=== PATIENT | female | born 1955 | race American Indian/Alaskan Native ===

== ENCOUNTER 2016-08-07 20:47 | Inpatient (IN) | payer MEDICARE ==
[2016-08-07 23:17] LABS: Hematocrit 34.5 % (30.3-42.9); Hemoglobin 11.4 gm/dl (10.1-14.3); Mean Corpuscular HGB Conc 33 % (30-34); Mean Corpuscular Hemoglobin 28 pg (28-32); Mean Corpuscular Volume 86 fl (79-97); Platelet Count 276 K/mm3 (140-440); Red Blood Count 4.01 M/mm3 (3.65-5.03); Red Cell Distribution Width 14.6 % (13.2-15.2); White Blood Count 9.2 K/mm3 (4.5-11.0)
[2016-08-07 23:25] LABS: Anion Gap 19 mmol/L; BUN/Creatinine Ratio 18.88; Blood Urea Nitrogen 17 mg/dL (7-17); Calcium 9.2 mg/dL (8.4-10.2); Carbon Dioxide 22 mmol/L (22-30); Chloride 99.2 mmol/L (98-107); Glucose 204 mg/dL (65-100); Potassium 3.7 mmol/L (3.6-5.0); Sodium 136 mmol/L (137-145)
[2016-08-07] MEDS ORDERED: DILAUDID IV ONE ×2 (23:28→23:39)
[2016-08-07] MEDS ORDERED: ZOFRAN IV ONE (23:28)
[2016-08-07] MEDS ORDERED: DUONEB 0.5 MG-3 MG/3 ML SOLN IH ONE (23:28)
[2016-08-07] MEDS ORDERED: TORADOL IV ONE (23:28)
--- NOTE | 2016-08-08 00:13 | Emergency Department Report ---
ED Neuro Deficit HPI - General Chief Complaint: Chest Pain Stated Complaint: CHEST PAIN, GERSON Time Seen by Provider: 08/07/16 23:04 Source: patient, old records reviewed Mode of arrival: Ambulatory Limitations: No Limitations - History of Present Illness Initial Comments: 60-year-old female with a past medical history diabetes, arthritis, hypertension , sciatica, gastric paresis, back surgery with chronic back pain presents to the hospital with multiple complaints Complaint #1 left breast pain and chest pain. Symptoms have been constant for the last 3 days. She complains of constant 10/10 chest pain and breast pain that is worse with palpation and movement in certain positions. Patient feels better when her left breast is supported by bra or hand and worse when it is hanging secondary to gravity. Patient also has intermittent episodes of shortness of breath but states she does have a diagnosis of COPD as well. No alleviating factors reported. Upon med record review Pt had a negative stress 2015. She also had a cardiac cath 11/14/14 showing normal coronary arteries an EF of 60-65% Complaint #2: Left sided paralysis/transient weakness Patient was across the street at [facility] prior to coming here for her initial chest pain complaint and states while she was walking out of the store her left side completely gave out on her. She states that she fell landing on her butt causing increase in her chronic lower back pain. She states that she had a paresthesia sensation to her left arm and leg. She could not move her left side at all and was subsequently helped to a car and brought to the ER by bystanders. Patient states the symptoms have gradually in improved. This is her third episode of left sided transient paralysis in the last 4 months. Patient states she had an episode 3 months ago and was admitted to [facility] then upon discharge she had a second episode and did not go to the hospital again since she was recently discharged. Complaint #3: Chronic back pain Patient states she has chronic back pain but it is worse since she fell at [facility] prior to arrival. Patient also states the last 2 weeks she has had intermittent urinary and fecal incontinence as well as intermittent vaginal numbness. Patient has chronic left-sided weakness but is unsure if she has chronic numbness to that side. Pain is rated 10/10 in intensity and worse with palpation and movement.. Patient has had previous back surgeries. Patient was informed she needed another back surgery but declined since she was no better with the previous ones PMD: Dr. Dugan - Related Data Home Medications: Home Medications Medication Instructions Recorded Confirmed Last Taken Insulin Aspart [NovoLOG 100 See Protocol SQ AC 12/23/12 11/13/14 07/28/13 UNITS/ML VIAL] Insulin Glargine,Hum.rec.anlog 30 unit SQ QHS 12/23/12 11/13/14 07/27/13 [Lantus Solostar] Previous Rx's Medication Instructions Recorded Last Taken Type Hydrocodone Bit/Acetaminophen 1 each PO TID PRN #15 tablet 12/24/12 Unknown Rx [Lortab 5-500 Tablet] Ondansetron [Zofran ORAL LIQ] 4 mg PO TID PRN #15 oralsyr 12/24/12 07/28/13 Rx Atenolol [Tenormin] 50 mg PO DAILY #30 tablet 01/04/13 07/28/13 Rx Magaldrate/Simethicone [Riopan 30 ml PO Q8H PRN 30 Days 01/04/13 07/28/13 Rx Plus Suspension] Promethazine [Phenergan SUPPOS] 25 mg MN Q6H PRN #60 supp.rect 01/04/13 Rx Potassium Chloride [K-Dur] 40 meq PO QDAY #2 tablet 04/13/13 07/28/13 Rx Allergies/Adverse Reactions: Allergies Allergy/AdvReac Type Severity Reaction Status Date / Time No Known Allergies Allergy Verified 11/13/14 11:37 ED Review of Systems ROS: Stated complaint: CHEST PAIN, GERSON Other details as noted in HPI Comment: All other systems reviewed and negative Other: Constitutional: No fevers chills Eyes: No eye pain visual changes ENT: No ear pain or throat pain Neck: Denies pain Respiratory: as per hpi Cardiovascular: as per hpi GI: Denies abdominal pain, nausea, vomiting, diarrhea : Denies dysuria Musculoskeletal: as per hpi Skin: Denies rash, lesions, erythema Neurologic: denies headache ED Past Medical Hx - Past Medical History Hx Hypertension: Yes Hx Heart Attack/AMI: No Hx Congestive Heart Failure: No Hx Diabetes: Yes Hx Deep Vein Thrombosis: No Hx Pulmonary Embolism: No Hx Liver Disease: No Hx Renal Disease: No Hx Sickle Cell Disease: No Hx Arthritis: Yes Hx Seizures: No Hx Asthma: Yes Hx COPD: No Hx Tuberculosis: No Hx Dementia: No Hx HIV: No Additional medical history: Sciatica, gastroparesis. negative stress 07/2015. cardiac cath 11/14/14 showing normal coronary arteries an EF of 60-65% - Surgical History Hx Coronary Stent: No Hx Pacemaker: No Hx Internal Defibrillator: No Additional Surgical History: back surgery. bowel obstruction surgery. - Social History Smoking Status: Never Smoker Substance Use Type: None - Medications Home Medications: Home Medications Medication Instructions Recorded Confirmed Last Taken Type Insulin Aspart [NovoLOG 100 See Protocol SQ AC 12/23/12 11/13/14 07/28/13 History UNITS/ML VIAL] Insulin Glargine,Hum.rec.anlog 30 unit SQ QHS 12/23/12 11/13/14 07/27/13 History [Lantus Solostar] Hydrocodone Bit/Acetaminophen 1 each PO TID PRN #15 tablet 12/24/12 11/13/14 Unknown Rx [Lortab 5-500 Tablet] Ondansetron [Zofran ORAL LIQ] 4 mg PO TID PRN #15 oralsyr 12/24/12 11/13/1409/05 Rx Atenolol [Tenormin] 50 mg PO DAILY #30 tablet 01/04/13 11/13/14 07/28/13 Rx Magaldrate/Simethicone [Riopan 30 ml PO Q8H PRN 30 Days 01/04/13 11/13/14 Rx Plus Suspension] Promethazine [Phenergan SUPPOS] 25 mg MN Q6H PRN #60 supp.rect 01/04/1307/28/13 Rx Potassium Chloride [K-Dur] 40 meq PO QDAY #2 tablet 04/13/13 11/13/14 07/28/13 Rx ED Neuro Physical Exam - General Limitations: No Limitations Suspected Stroke: Yes - NIHSS Assessment Interval: Baseline 1a. Level of Consciousness: alert 1b. LOC Questions: answers correctly 1c. LOC Commands: performs tasks correctly 2. Best Gaze: normal 3. Visual: no visual loss 4. Facial Palsy: normal symmetrical movement 5b. Motor Arm Right: no drift 5a. Motor Arm Left: drift 6a. Motor Leg Left: some gravity effort 6b. Motor Leg Right: no drift 7. Limb Ataxia: absent 8. Sensory: mild/moderate sensory loss 9. Best Language: no aphasia 10. Dysarthria: normal 11. Extinction/Inattention: no abnormality Total Score: 4 Stroke Severity: Minor Stroke - Other Other exam information: General: No limitations, patient is alert in no acute distress Head exam: Atraumatic, normocephalic Eyes exam: Normal appearance, pupils equal reactive to light, extraocular movements intact ENT: Moist mucous membrane, normal oropharynx Neck exam: Normal inspection, full range of motion, nontender, no meningismus Respiratory exam: Clear to auscultation bilateral, no wheezes, rales, crackles, initially however, during examination and movement patient developed tachypnea with expiratory wheeze and prolonged expiratory phase Cardiovascular: Normal rate and rhythm Breast: Diffuse left-sided breast tenderness without erythema, warmth, abscess, or nipple discharge Abdomen: Soft, nondistended, and nontender, with normal bowel sounds, no rebound, or guarding Extremity: Full range of motion normal inspection no deformity, no calf tenderness or edema Back: Normal Inspection, full range of motion, generalized midline and bilateral spinal muscle tenderness Neurologic: Alert, oriented x3, cranial nerves intact, patient able to lift his left leg off the bed but unable to sustain. 4+/5 left upper extremity strength. Decreased sensation to light touch of the left leg and left arm. She is patient is unsure if this is new or old. 2+ bilateral patellar reflexes Psychiatric: normal affect, normal mood Skin: Warm, dry, intact ED Course Vital Signs 08/07/16 08/07/16 08/08/16 21:44 22:44 02:00 Temperature 98.9 F 98 F 98 F Pulse Rate 103 H 80 103 H Respiratory 20 18 18 Rate Blood Pressure 146/87 Blood Pressure 146/87 139/83 153/79 [Left] O2 Sat by Pulse 100 99 96 Oximetry - Reevaluation(s) Reevaluation #1: 08/08/16 00:23 Patient received a DuoNeb for wheezing and shortness of breath, Dilaudid, Toradol and Zofran 08/08/16 00:23 - Lab Data Result diagrams: 08/07/16 22:50 08/07/16 22:50 Lab Results 08/07/16 08/07/16 08/07/16 Range/Units 21:51 22:50 22:50 WBC 9.2 (4.5-11.0) K/mm3 RBC 4.01 (3.65-5.03) M/mm3 Hgb 11.4 (10.1-14.3) gm/dl Hct 34.5 (30.3-42.9) % MCV 86 (79-97) fl MCH 28 (28-32) pg MCHC 33 (30-34) % RDW 14.6 (13.2-15.2) % Plt Count 276 (140-440) K/mm3 Lymph # Child And Adolescent Psychologist Add Manual Diff Complete Total Counted 100 Seg Neutrophils % Child And Adolescent Psychologist Seg Neuts % (Manual) 33.0 L (40.0-70.0) % Band Neutrophils % 0 % Lymphocytes % (Manual) 61.0 H (13.4-35.0) % Reactive Lymphs % (Man) 0 % Monocytes % (Manual) 5.0 (0.0-7.3) % Eosinophils % (Manual) 1.0 (0.0-4.3) % Basophils % (Manual) 0 (0.0-1.8) % Metamyelocytes % 0 % Myelocytes % 0 % Promyelocytes % 0 % Blast Cells % 0 % Nucleated RBC % Not Reportable Seg Neutrophils # Man 3.0 (1.8-7.7) K/mm3 Band Neutrophils # 0.0 K/mm3 Lymphocytes # (Manual) 5.6 H (1.2-5.4) K/mm3 Abs React Lymphs (Man) 0.0 K/mm3 Monocytes # (Manual) 0.5 (0.0-0.8) K/mm3 Eosinophils # (Manual) 0.1 (0.0-0.4) K/mm3 Basophils # (Manual) 0.0 (0.0-0.1) K/mm3 Metamyelocytes # 0.0 K/mm3 Myelocytes # 0.0 K/mm3 Promyelocytes # 0.0 K/mm3 Blast Cells # 0.0 K/mm3 WBC Morphology Not Reportable Hypersegmented Neuts Not Reportable Hyposegmented Neuts Not Reportable Hypogranular Neuts Not Reportable Smudge Cells Not Reportable Toxic Granulation Not Reportable Toxic Vacuolation Not Reportable Dohle Bodies Not Reportable Pelger-Huet Anomaly Not Reportable Marisol Rods Not Reportable Platelet Estimate Appears normal Clumped Platelets Not Reportable Plt Clumps, EDTA Not Reportable Large Platelets Not Reportable Giant Platelets Not Reportable Platelet Satelliting Not Reportable Plt Morphology Comment Not Reportable RBC Morphology Not Reportable Dimorphic RBCs Not Reportable Polychromasia Not Reportable Hypochromasia Not Reportable Poikilocytosis Not Reportable Anisocytosis Few Microcytosis Not Reportable Macrocytosis Not Reportable Spherocytes Not Reportable Pappenheimer Bodies Not Reportable Sickle Cells Not Reportable Target Cells Not Reportable Tear Drop Cells Not Reportable Ovalocytes Not Reportable Stomatocytes Rare Helmet Cells Not Reportable Jane-Jamul Bodies Not Reportable [place] Rings Not Reportable [place] Cells Not Reportable Bite Cells Not Reportable Crenated Cell Not Reportable Elliptocytes Not Reportable Acanthocytes (Spur) Not Reportable Rouleaux Not Reportable Hemoglobin C Crystals Not Reportable Schistocytes Not Reportable Malaria parasites Not Reportable Isaias Bodies Not Reportable Hem Pathologist Commnt No Sodium 136 L (137-145) mmol/L Potassium 3.7 (3.6-5.0) mmol/L Chloride 99.2 (98-107) mmol/L Carbon Dioxide 22 (22-30) mmol/L Anion Gap 19 mmol/L BUN 17 (7-17) mg/dL Creatinine 0.9 (0.7-1.2) mg/dL Estimated GFR > 60 ml/min BUN/Creatinine Ratio 18.88 % Glucose 204 H (65-100) mg/dL POC Glucose 216 H (70-105) Calcium 9.2 (8.4-10.2) mg/dL Troponin T < 0.010 (0.00-0.029) ng/mL 08/08/16 Range/Units 01:06 WBC (4.5-11.0) K/mm3 RBC (3.65-5.03) M/mm3 Hgb (10.1-14.3) gm/dl Hct (30.3-42.9) % MCV (79-97) fl MCH (28-32) pg MCHC (30-34) % RDW (13.2-15.2) % Plt Count (140-440) K/mm3 Lymph # Add Manual Diff Total Counted Seg Neutrophils % Seg Neuts % (Manual) (40.0-70.0) % Band Neutrophils % % Lymphocytes % (Manual) (13.4-35.0) % Reactive Lymphs % (Man) % Monocytes % (Manual) (0.0-7.3) % Eosinophils % (Manual) (0.0-4.3) % Basophils % (Manual) (0.0-1.8) % Metamyelocytes % % Myelocytes % % Promyelocytes % % Blast Cells % % Nucleated RBC % Seg Neutrophils # Man (1.8-7.7) K/mm3 Band Neutrophils # K/mm3 Lymphocytes # (Manual) (1.2-5.4) K/mm3 Abs React Lymphs (Man) K/mm3 Monocytes # (Manual) (0.0-0.8) K/mm3 Eosinophils # (Manual) (0.0-0.4) K/mm3 Basophils # (Manual) (0.0-0.1) K/mm3 Metamyelocytes # K/mm3 Myelocytes # K/mm3 Promyelocytes # K/mm3 Blast Cells # K/mm3 WBC Morphology Hypersegmented Neuts Hyposegmented Neuts Hypogranular Neuts Smudge Cells Toxic Granulation Toxic Vacuolation Dohle Bodies Pelger-Huet Anomaly Marisol Rods Platelet Estimate Clumped Platelets Plt Clumps, EDTA Large Platelets Giant Platelets Platelet Satelliting Plt Morphology Comment RBC Morphology Dimorphic RBCs Polychromasia Hypochromasia Poikilocytosis Anisocytosis Microcytosis Macrocytosis Spherocytes Pappenheimer Bodies Sickle Cells Target Cells Tear Drop Cells Ovalocytes Stomatocytes Helmet Cells Jane-Jamul Bodies [place] Rings [place] Cells Bite Cells Crenated Cell Elliptocytes Acanthocytes (Spur) Rouleaux Hemoglobin C Crystals Schistocytes Malaria parasites Isaias Bodies Hem Pathologist Commnt Sodium (137-145) mmol/L Potassium (3.6-5.0) mmol/L Chloride (98-107) mmol/L Carbon Dioxide (22-30) mmol/L Anion Gap mmol/L BUN (7-17) mg/dL Creatinine (0.7-1.2) mg/dL Estimated GFR ml/min BUN/Creatinine Ratio % Glucose (65-100) mg/dL POC Glucose (70-105) Calcium (8.4-10.2) mg/dL Troponin T < 0.010 (0.00-0.029) ng/mL - EKG Data -: EKG Interpreted by Me (sinus rate 90 left atrial enlargement and nonspecific ST-T abnormality) When compared to previous EKG there are: no significant change (compared to 12/2015) - Radiology Data Radiology results: report reviewed (ct head: naf), image reviewed (cxr: naf Lumbar xray: previous surgery noted, naf) - Medical Decision Making Other differential: COPD Plan to admit to the hospital for further workup and evaluation. She has neurologic symptoms. Differential includes CVA/TIA or spinal cord pathology. Patient on chest pain appears to be breast related and reproducible. Patient has residual left-sided weakness which appears to be acute on chronic. - Differential Diagnosis cauda equina, herniated disc, chronic pain, muscle spasm, fracture, CVA, TI Critical Care Time: No Critical care attestation.: If time is entered above; I have spent that time in minutes in the direct care of this critically ill patient, excluding procedure time. ED Disposition Clinical Impression: Transient paralysis of a limb, Left-sided weakness, Acute exacerbation of chronic low back pain, Left sided numbness, Breast pain, left, COPD exacerbation Disposition: OP ADMITTED IP TO THIS HOSP Is pt being admited?: Yes Condition: Stable Referrals: PRIMARY CARE, [Primary Care Provider] - 3-5 Days Time of Disposition: 01:37 (Dr Anderson/hosp)
--- NOTE | 2016-08-08 01:28 | Cat Scan Report ---
FINAL REPORT EXAM: CT HEAD/BRAIN WO CON HISTORY: left side weakness TECHNIQUE: Noncontrast CT axial images of the brain. PRIORS: 02 August 2015. FINDINGS: No parenchymal mass, mass effect, hemorrhage, midline shift or hydrocephalus. No evidence of acute cortical infarct. No abnormal, extra-axial fluid or air collection. Very mild, patchy low density in the periventricular and subcortical white matter is nonspecific, but may relate to chronic small vessel ischemic change. Osseous calvarium grossly intact. Marginal mucosal thickening in the right sphenoid sinus. IMPRESSION: 1. No acute intracranial findings.
[2016-08-08 02:08] LABS: Anisocytosis Few; Basophils % (Manual) 0 % (0.0-1.8); Blastocytes % (Manual) 0 %
[2016-08-08 02:09] LABS: Diff Status Complete; Stomatocytes Rare
[2016-08-08] MEDS ORDERED: ALUM-MAG HYDROX-SIMETH 200-200-20MG/5ML PO ONE (02:48)
[2016-08-08] MEDS ORDERED: LIDOCAINE VISCOUS 2% PO ONE (02:48)
[2016-08-08] MEDS ORDERED: MILK OF MAGNESIA PO PRN (04:20)
[2016-08-08] MEDS ORDERED: PROVENTIL IH PRN (04:20)
[2016-08-08] MEDS ORDERED: DULCOLAX PR PRN (04:20)
[2016-08-08] MEDS ORDERED: REGLAN PO PRN (04:20)
[2016-08-08] MEDS ORDERED: SODIUM CHLORIDE FLUSH SYRINGE 10 ML IV PRN (04:20)
--- NOTE | 2016-08-08 04:24 | History and Physical Report ---
History of Present Illness Date of examination: 08/08/16 History of present illness: 60-year-old woman with a history of hypertension, diabetes, chronic pain comes emergency room with complaints of left sided numbness. Also complaining of chest pain in the epigastric and left substernal area which she describes as a sharp pain, constant, intensity 7/10, radiating to the left upper back, she cannot identify exacerbating or relieving factors. She has had nausea vomiting and diarrhea for 3 days, symptoms are better, also complaining of mild shortness of breath, no diaphoresis or palpitation Patient denies cough, abdominal pain, hematochezia, dysuria, frequency, focal weakness, dysarthria, fever chills, polydipsia polyuria, hot or cold intolerance , easy bruisability, or rash or bleeding from mucosal membrane, rhinorrhea, epistaxis, earache, tinnitus, blurry vision, eye discharge, anxiety, depression. Other review of systems negative PAST SURGICAL HISTORY: Back surgery, surgery for bowel obstruction SOCIAL HISTORY: Denies alcohol, tobacco, drugs FAMILY HISTORY: Hypertension Medications and Allergies Allergies Allergy/AdvReac Type Severity Reaction Status Date / Time No Known Allergies Allergy Verified 11/13/14 11:37 Home Medications Medication Instructions Recorded Confirmed Last Taken Type Insulin Aspart [NovoLOG 100 See Protocol SQ AC 12/23/12 11/13/14 07/28/13 History UNITS/ML VIAL] Insulin Glargine,Hum.rec.anlog 30 unit SQ QHS 12/23/12 11/13/14 07/27/13 History [Lantus Solostar] Hydrocodone Bit/Acetaminophen 1 each PO TID PRN #15 tablet 12/24/12 11/13/14 Unknown Rx [Lortab 5-500 Tablet] Ondansetron [Zofran ORAL LIQ] 4 mg PO TID PRN #15 oralsyr 12/24/12 11/13/1409/05 Rx Atenolol [Tenormin] 50 mg PO DAILY #30 tablet 01/04/13 11/13/14 07/28/13 Rx Magaldrate/Simethicone [Riopan 30 ml PO Q8H PRN 30 Days 01/04/13 11/13/14 Rx Plus Suspension] Promethazine [Phenergan SUPPOS] 25 mg [place] Q6H PRN #60 supp.rect 01/04/1307/28/13 Rx Potassium Chloride [K-Dur] 40 meq PO QDAY #2 tablet 04/13/13 11/13/14 07/28/13 Rx Exam - Physical Exam Narrative exam: Gen. appearance: Patient lying in bed, no apparent distress HEENT: Normocephalic, atraumatic, pupils equally round and reactive to light, extraocular movement intact, and no sclericterus,. No JVD or thyromegaly or nodule,neck supple, no carotid bruit ,mucous membranes moist, no exudate or erythema Heart: S1, S2, regular rate and rhythm Lungs: Clear to auscultation bilaterally, breathing comfortable Abdomen: Positive bowel sounds, nontender, nondistended, no organomegaly Extremity: No edema, cyanosis, clubbing Skin: No rash, nodules, warm, dry Neuro: Oriented 3, cranial nerves II-12 intact, speech is fluent, motor, left- sided numbness - Constitutional Vitals: Temp Pulse Resp BP Pulse Ox 98 F 103 H 18 153/79 96 08/08/16 02:00 08/08/16 02:00 08/08/16 02:00 08/08/16 02:00 08/08/16 02:00 Results - Labs CBC & Chem 7: 08/07/16 22:50 08/07/16 22:50 Labs: Abnormal lab results 08/07/16 08/07/16 08/07/16 Range/Units 21:51 22:50 22:50 Seg Neuts % (Manual) 33.0 L (40.0-70.0) % Lymphocytes % (Manual) 61.0 H (13.4-35.0) % Lymphocytes # (Manual) 5.6 H (1.2-5.4) K/mm3 Sodium 136 L (137-145) mmol/L Glucose 204 H (65-100) mg/dL POC Glucose 216 H (70-105) - Imaging and Cardiology EKG: image reviewed Chest x-ray: image reviewed CT Scan - head: report reviewed Assessment and Plan CVA versus TIA Chest pain, rule out ACS Hypertension Diabetes Admit to medicine Obtain MRI of the head, carotid Doppler, echo Do neurochecks, start aspirin, statin Consult neurology, obtain stress test Start DVT prophylaxis
[2016-08-08] MEDS: TYLENOL PO PRN ×2 (06:12→13:09)
[2016-08-08] MEDS: ZOFRAN IV PRN (06:19)
[2016-08-08 07:58] LABS: Creatine Kinase MB 2.6 ng/mL (0.0-4.0)
[2016-08-08 08:01] LABS: Creatine Kinase 275 units/L (30-135)
[2016-08-08] MEDS ORDERED: LEXISCAN IV ONE ×2 (08:12→08:13)
[2016-08-08] MEDS ORDERED: LOVENOX SUB-Q SCH ×2 (10:00)
[2016-08-08] MEDS ORDERED: ASPIRIN PO SCH (10:00)
--- NOTE | 2016-08-08 10:15 | Progress Note ---
Assessment and Plan Assessment and plan: Patient is 60-year-old woman with a plethora of comorbidities who presents with multiple somatic complaints. Significant for chest pain and left-sided weakness. Patient is being worked up for ischemia and CVA. MRI brain, echocardiogram, stress test and carotid Doppler has been ordered. PCP Dr. Rdz which I consulted. Cardiac enzymes troponins have been negative, CT head unremarkable. Chest x-ray pending. -Chest pain so far negative cardiac enzymes unrevealing EKG: pending stress tests -Left-sided weakness rule out CVA -Left shoulder pain after fall: X-ray the shoulder -Diabetes mellitus type 2 uncontrolled: As sliding-scale -DVT prophylaxis: Subcutaneous Lovenox Full code History Interval history: Patient admitted today, hospital reassessment Patient seen and examined. Follow up on left-sided weakness which is still present. Overnight uneventful. No cp, sob, n/v or severe headaches. Imaging, old records, testing, labs, nursing notes reviewed. Plan discussed with patient. 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 but she also has weakness in proximal muscle and shoulder area PSY: CALM - Constitutional Vitals: Temp Pulse Resp BP Pulse Ox 98.4 F 73 20 122/83 92 08/08/16 06:23 08/08/16 06:23 08/08/16 06:23 08/08/16 06:23 08/08/16 06:23 Results - Labs CBC & Chem 7: 08/07/16 22:50 08/07/16 22:50 Labs: Laboratory Last Values WBC 9.2 K/mm3 (4.5-11.0) 08/07/16 22:50 RBC 4.01 M/mm3 (3.65-5.03) 08/07/16 22:50 Hgb 11.4 gm/dl (10.1-14.3) 08/07/16 22:50 Hct 34.5 % (30.3-42.9) 08/07/16 22:50 MCV 86 fl (79-97) 08/07/16 22:50 MCH 28 pg (28-32) 08/07/16 22:50 MCHC 33 % (30-34) 08/07/16 22:50 RDW 14.6 % (13.2-15.2) 08/07/16 22:50 Plt Count 276 K/mm3 (140-440) 08/07/16 22:50 Lymph # Sports Director 08/07/16 22:50 Add Manual Diff Complete 08/07/16 22:50 Total Counted 100 08/07/16 22:50 Seg Neutrophils % Sports Director 08/07/16 22:50 Seg Neuts % (Manual) 33.0 % (40.0-70.0) L 08/07/16 22:50 Band Neutrophils % 0 % 08/07/16 22:50 Lymphocytes % (Manual) 61.0 % (13.4-35.0) H 08/07/16 22:50 Reactive Lymphs % (Man) 0 % 08/07/16 22:50 Monocytes % (Manual) 5.0 % (0.0-7.3) 08/07/16 22:50 Eosinophils % (Manual) 1.0 % (0.0-4.3) 08/07/16 22:50 Basophils % (Manual) 0 % (0.0-1.8) 08/07/16 22:50 Metamyelocytes % 0 % 08/07/16 22:50 Myelocytes % 0 % 08/07/16 22:50 Promyelocytes % 0 % 08/07/16 22:50 Blast Cells % 0 % 08/07/16 22:50 Nucleated RBC % Not Reportable 08/07/16 22:50 Seg Neutrophils # Man 3.0 K/mm3 (1.8-7.7) 08/07/16 22:50 Band Neutrophils # 0.0 K/mm3 08/07/16 22:50 Lymphocytes # (Manual) 5.6 K/mm3 (1.2-5.4) H 08/07/16 22:50 Abs React Lymphs (Man) 0.0 K/mm3 08/07/16 22:50 Monocytes # (Manual) 0.5 K/mm3 (0.0-0.8) 08/07/16 22:50 Eosinophils # (Manual) 0.1 K/mm3 (0.0-0.4) 08/07/16 22:50 Basophils # (Manual) 0.0 K/mm3 (0.0-0.1) 08/07/16 22:50 Metamyelocytes # 0.0 K/mm3 08/07/16 22:50 Myelocytes # 0.0 K/mm3 08/07/16 22:50 Promyelocytes # 0.0 K/mm3 08/07/16 22:50 Blast Cells # 0.0 K/mm3 08/07/16 22:50 WBC Morphology Not Reportable 08/07/16 22:50 Hypersegmented Neuts Not Reportable 08/07/16 22:50 Hyposegmented Neuts Not Reportable 08/07/16 22:50 Hypogranular Neuts Not Reportable 08/07/16 22:50 Smudge Cells Not Reportable 08/07/16 22:50 Toxic Granulation Not Reportable 08/07/16 22:50 Toxic Vacuolation Not Reportable 08/07/16 22:50 Dohle Bodies Not Reportable 08/07/16 22:50 Pelger-Huet Anomaly Not Reportable 08/07/16 22:50 Marisol Rods Not Reportable 08/07/16 22:50 Platelet Estimate Appears normal 08/07/16 22:50 Clumped Platelets Not Reportable 08/07/16 22:50 Plt Clumps, EDTA Not Reportable 08/07/16 22:50 Large Platelets Not Reportable 08/07/16 22:50 Giant Platelets Not Reportable 08/07/16 22:50 Platelet Satelliting Not Reportable 08/07/16 22:50 Plt Morphology Comment Not Reportable 08/07/16 22:50 RBC Morphology Not Reportable 08/07/16 22:50 Dimorphic RBCs Not Reportable 08/07/16 22:50 Polychromasia Not Reportable 08/07/16 22:50 Hypochromasia Not Reportable 08/07/16 22:50 Poikilocytosis Not Reportable 08/07/16 22:50 Anisocytosis Few 08/07/16 22:50 Microcytosis Not Reportable 08/07/16 22:50 Macrocytosis Not Reportable 08/07/16 22:50 Spherocytes Not Reportable 08/07/16 22:50 Pappenheimer Bodies Not Reportable 08/07/16 22:50 Sickle Cells Not Reportable 08/07/16 22:50 Target Cells Not Reportable 08/07/16 22:50 Tear Drop Cells Not Reportable 08/07/16 22:50 Ovalocytes Not Reportable 08/07/16 22:50 Stomatocytes Rare 08/07/16 22:50 Helmet Cells Not Reportable 08/07/16 22:50 [place] Bodies Not Reportable 08/07/16 22:50 [place] Rings Not Reportable 08/07/16 22:50 Renick Cells Not Reportable 08/07/16 22:50 Bite Cells Not Reportable 08/07/16 22:50 Crenated Cell Not Reportable 08/07/16 22:50 Elliptocytes Not Reportable 08/07/16 22:50 Acanthocytes (Spur) Not Reportable 08/07/16 22:50 Rouleaux Not Reportable 08/07/16 22:50 Hemoglobin C Crystals Not Reportable 08/07/16 22:50 Schistocytes Not Reportable 08/07/16 22:50 Malaria parasites Not Reportable 08/07/16 22:50 Isaias Bodies Not Reportable 08/07/16 22:50 Hem Pathologist Commnt No 08/07/16 22:50 Sodium 136 mmol/L (137-145) L 08/07/16 22:50 Potassium 3.7 mmol/L (3.6-5.0) 08/07/16 22:50 Chloride 99.2 mmol/L (98-107) 08/07/16 22:50 Carbon Dioxide 22 mmol/L (22-30) 08/07/16 22:50 Anion Gap 19 mmol/L 08/07/16 22:50 BUN 17 mg/dL (7-17) 08/07/16 22:50 Creatinine 0.9 mg/dL (0.7-1.2) 08/07/16 22:50 Estimated GFR > 60 ml/min 08/07/16 22:50 BUN/Creatinine Ratio 18.88 % 08/07/16 22:50 Glucose 204 mg/dL (65-100) H 08/07/16 22:50 POC Glucose 216 (70-105) H 08/07/16 21:51 Calcium 9.2 mg/dL (8.4-10.2) 08/07/16 22:50 Total Creatine Kinase 275 units/L (30-135) H 08/08/16 06:39 CK-MB (CK-2) 2.6 ng/mL (0.0-4.0) 08/08/16 06:39 CK-MB (CK-2) Rel Index 0.9 (0-4) 08/08/16 06:39 Troponin T < 0.010 ng/mL (0.00-0.029) 08/08/16 06:39 - Imaging and Cardiology CT Scan - head: report reviewed
--- NOTE | 2016-08-08 11:33 | XRay Report ---
AP CHEST : 08/08/16 CLINICAL: Chest pain. COMPARISON:08/02/15 FINDINGS: Normal heart and pulmonary vessels. The lungs are normally expanded and clear. Degenerative changes in the spine. IMPRESSION: No acute cardiopulmonary process.
--- NOTE | 2016-08-08 11:38 | XRay Report ---
LUMBAR SPINE THREE VIEWS: 08/07/16 20:47:00 CLINICAL: Fall and back pain. COMPARISON: 12/22/12 FINDINGS: Status post posterior lumbar fusion from L4-S1. Stable straightening of the spine with loss of the normal lordosis. The L3 vertebral body is decreased in height compared to the prior exam but there are no fracture lines. Stable sclerosis of the L2, L3 and upper L4 vertebral bodies. Vacuum disc phenomenon at L2-3 and L3-4. Greater anterior spondylosis from L2-L4. The pedicles are intact. No fracture. Normal soft tissues. IMPRESSION: No apparent traumatic injury. Status post lumbar fusion. Chronic degenerative disc disease at L2-3 and L3-4.
--- NOTE | 2016-08-08 13:19 | Event Note ---
Date: 08/08/16 Lexiscan MPI is normal inform PCP
--- NOTE | 2016-08-08 14:00 | XRay Report ---
LEFT SHOULDER THREE VIEWS: 08/08/16 04:20:00 CLINICAL: Fall and pain. FINDINGS: Mild osteopenia. No fracture or dislocation. Mild glenohumeral joint arthritis with a small inferior humeral osteophyte. Mild degenerative change at the greater tuberosity. Normal acromioclavicular joint. Normal soft tissues. IMPRESSION: Degenerative change and no apparent injury.
[2016-08-08 15:15] LABS: Creatine Kinase MB 2.7 ng/mL (0.0-4.0)
[2016-08-08 15:17] LABS: Creatine Kinase 235 units/L (30-135)
[2016-08-08] MEDS ORDERED: ATIVAN IV ONE (17:08)
[2016-08-08] MEDS: NORCO 10/325 PO PRN (21:15)
[2016-08-08] MEDS ORDERED: ZOCOR PO SCH (22:00)
--- NOTE | 2016-08-08 22:06 | Consultation ---
History of Present Illness - Reason for Consult Consult date: 08/08/16 lymphocytosis/left breast pain. - History of Present Illness Thank you for this support. Patient seen/examined, record reviewed, case d/w the patient. She had presented to the Ed, after a syncope episode. carotid study so far shows less than 50% occlusion.She is complaining of left breast pain, Her last mammogram was one yr ago. She may benefit from us/mammogram. Past History Past Medical History: diabetes, hypertension Social history: no significant social history Medications and Allergies Allergies Allergy/AdvReac Type Severity Reaction Status Date / Time No Known Allergies Allergy Verified 11/13/14 11:37 Home Medications Medication Instructions Recorded Confirmed Last Taken Type Insulin Aspart [NovoLOG 100 See Protocol SQ AC 12/23/12 08/08/16 08/07/16 History UNITS/ML VIAL] Insulin Glargine,Hum.rec.anlog 30 unit SQ QHS 12/23/12 08/08/16 08/07/16 History [Lantus Solostar] Ondansetron [Zofran ORAL LIQ] 4 mg PO TID PRN #15 oralsyr 12/24/12 08/08/16 Rx Atenolol [Tenormin] 50 mg PO DAILY #30 tablet 01/04/13 08/08/16 08/07/16 Rx Promethazine [Phenergan SUPPOS] 25 mg IA Q6H PRN #60 supp.rect 01/04/1307/28/13 Rx Potassium Chloride [K-Dur] 40 meq PO QDAY #2 tablet 04/13/13 08/08/16 08/06/16 Rx Hydrocodone Bit/Acetaminophen 20 mg PO TID PRN 08/08/16 08/08/16 08/07/16 History [Lortab 5-500 Tablet] Active Meds: Active Medications Acetaminophen (Tylenol) 650 mg PO Q4H PRN PRN Reason: Pain, Mild (1-3) Last Admin: 08/08/16 13:09 Dose: 650 mg Acetaminophen/Hydrocodone Bitart ([place] 10/325) 2 each PO TID PRN PRN Reason: Pain, Moderate (4-6) Albuterol (Proventil) 2.5 mg IH Q3HRT PRN PRN Reason: Shortness Of Breath Aspirin (Aspirin) 325 mg PO QDAY [facility] Last Admin: 08/08/16 13:08 Dose: 325 mg Bisacodyl (Dulcolax) 10 mg IA QDAY PRN PRN Reason: Constipation Enoxaparin Sodium (Lovenox) 40 mg SUB-Q QDAY@1000 [facility] Last Admin: 08/08/16 13:08 Dose: 40 mg Magnesium Hydroxide (Milk Of Magnesia) 30 ml PO Q4H PRN PRN Reason: Constipation Metoclopramide HCl (Reglan) 10 mg PO Q6H PRN PRN Reason: Nausea And Vomiting Ondansetron HCl (Zofran) 4 mg IV Q8H PRN PRN Reason: N/V unrelieved by Reglan Last Admin: 08/08/16 06:19 Dose: 4 mg Pneumococcal Polyvalent Vaccine (Pneumovax 23) 0.5 ml IM .ONCE ONE Stop: 08/09/16 12:01 Simvastatin (Zocor) 20 mg PO QHS [facility] Sodium Chloride (Sodium Chloride Flush Syringe 10 Ml) 10 ml IV PRN PRN PRN Reason: LINE FLUSH Review of Systems Constitutional: chronic pain Breasts: deferred Cardiovascular: chest pain Musculoskeletal: low back pain Exam - Constitutional Vitals: Temp Pulse Resp BP Pulse Ox 97.9 F 85 20 151/89 94 08/08/16 20:00 08/08/16 20:00 08/08/16 20:00 08/08/16 20:00 08/08/16 20:00 General appearance: Present: mild distress, well-nourished - EENT Eyes: Present: PERRL ENT: hearing intact, clear oral mucosa - Neck Neck: Present: supple, normal ROM - Respiratory Respiratory effort: normal Respiratory: bilateral: CTA - Cardiovascular Heart Sounds: Present: S1 & S2. Absent: rub, click - Extremities Extremities: pulses symmetrical, No edema Peripheral Pulses: within normal limits - Abdominal General gastrointestinal: Present: soft, non-tender, non-distended, normal bowel sounds Female genitourinary: Present: deferred - Rectal Rectal Exam: deferred - Integumentary Integumentary: Present: clear, warm, dry - Musculoskeletal Musculoskeletal: gait normal, strength equal bilaterally - Psychiatric Psychiatric: appropriate mood/affect, intact judgment & insight - Neurologic Neurologic: CNII-XII intact, moves all extremities Results - Labs CBC & Chem 7: 08/07/16 22:50 08/07/16 22:50 Labs: Abnormal lab results 08/08/16 08/08/16 Range/Units 06:39 14:32 Total Creatine Kinase 275 H 235 H (30-135) units/L Assessment and Plan - Patient Problems (1) Acute exacerbation of chronic low back pain Current Visit: Yes Status: Acute Plan to address problem: Pain control (2) Breast pain, left Current Visit: Yes Status: Acute Plan to address problem: Will get us/mammogram. (3) Left-sided weakness Current Visit: Yes Status: Acute Plan to address problem: continue current w/up (4) Left sided numbness Current Visit: Yes Status: Acute Plan to address problem: Same as above. (5) Transient paralysis of a limb Current Visit: Yes Status: Acute Plan to address problem: Same as above,
[2016-08-09] MEDS: ZOFRAN IV PRN (02:30)
--- NOTE | 2016-08-09 03:53 | Admit Criteria Form ---
Admission Criteria Documentation: NEUROLOGY GRG Clinical Indications for Admission to Inpatient Care (Place ' X' for any and all applicable criteria): Hospital admission is needed for appropriate care of the patient because of 1 or more of the following: [ ]I. Encephalitis [ ]II. 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 Vasculitis and 1 or more of the following(14)(15): []a) Altered mental status that is severe or persistent or other acute neurologic change []b) Psychosis []c) Seizure [ ]IV. Status epilepticus or repetitive seizures not controlled with emergent treatment [A] (7)(8) [ ]V. Altered mental status that is severe or persistent [ ]. Transient alteration in consciousness with high-risk etiology; examples include (12)(13): [ ]a) Cardiovascular source [ ]b) Cataplexy [ ]VII. Cerebral aneurysm requiring ANY ONE of the following(14): [ ]a) IV antihypertensives or vasoactive agents [ ]b) Sedation and analgesia for suspected leak [ ]c) Need for external ventricular drainage and cerebral perfusion pressure monitoring [ ]d) Emergent evaluation to determine need for surgical clipping or endovascular coiling by interventional radiology. If surgery is required ( Also use Craniotomy, Supratentorial, for Surgery of Bleeding Intracranial Aneurysm (for bleeding aneurysm) or Craniotomy, Supratentorial (for nonbleeding aneurysm) as appropriate. [ X]VIII. New-onset severe neurologic symptom requiring inpatient care indicated by ANY ONE of the following: [ ]a) Aphasia(15) [ ]b) Weakness (grade 3 or less) [ ]c) Paralysis (eg, hemiplegia) [ ]d) Spasticity(16) [ ]e) Dystonia [ ]e) Ataxia(17) [ ]f) Amnesia(18) [ ]g) Involuntary movements(19) [ ]h) Vertigo [ ] Visual loss [X ]i) Other severe neurologic finding (eg, papilledema, mass effect on imaging, myoclonus not treatable at alternative level of care (eg, observation care) [ ]IX. Guillain-Underhill syndrome(20) [ ]X. Myasthenia gravis crisis or inpatient monitoring need as indicated by 1 or more of the following(21): [ ]a) Intensive treatment (eg, course of plasmapheresis) with inadequate outpatient situation to monitor patients status [ ]b) Inadequate airway protection [ ]c) Respiratory insufficiency requiring intubation or inpatient. monitoring [ ]d) Progressive dysphagia with failure to thrive [ ]XI. Multiple sclerosis or other acute demyelinating disease requiring inpatient care as indicated by 1 or more of the following (22)(23): [ ]a) Acute severe deterioration requiring inpatient treatment (eg, IV steroids, plasmapheresis, close observation) [ ]b) Acute complication requiring inpatient care (eg, sepsis, severe decubitus, aspiration) [ ]XII.Parkinson disease requiring inpatient care (Also use Optimal Recovery Care Criteria or General Recovery Criteria as appropriate) indicated by 1 or more of the following(25): [ ]a) Infection (eg, aspiration pneumonia) not treatable at alternative level of care [ ]b Dehydration that is severe or persistent [ ]c) Life-threatening agitation or psychotic behavior not treatable on emergency, observation care, or alternative level (eg, residential) basis [ ]d) Severe medication withdrawal effects (eg, freezing, neuroleptic malignant syndrome) not responsive to emergency and observation care treatment ( as appropriate) [ ]e) Other severe manifestation not treatable at alternative level of care [ ]XII. Amyotrophic lateral sclerosis with inpatient care needs as indicated by ANY ONE of the following(26): [ ]a) Acute complications (eg, aspiration pneumonia, sepsis ) requiring inpatient care ( see other optimal Recovery Guideline as appropriate) [ ]b) Dehydration that is severe persistent AND artificial support desired [ ]c) Inadequate airway protection AND artificial support desired [ ]d) Severe ventilatory insufficiency AND artificial support desired [ ]XIII. Myasthenia gravis crisis or inpatient monitoring need as indicated by 1 or more of the following(21): [] a) Inadequate airway protection []b) Respiratory insufficiency requiring intubation or inpatient monitoring []c) Progressive dysphagia with failure to thrive []d) Intensive treatment (e.g., course of plasmapheresis) with inadequate outpatient situation to monitor patients status [ ]XIV. Multiple sclerosis or other acute demyelinating disease requiring inpatient care indicated by 1 or more of the following[C](36)(43)(44)(45)(46): []a) Acute severe deterioration requiring inpatient treatment (eg, IV steroids, plasmapheresis, close observation) []b) Acute complication requiring inpatient care (eg, sepsis, severe decubitus, aspiration) [ ]XV. Intracranial hypertension (e.g., pseudotumor cerebri) requiring inpatient care (e.g., acute visual loss, inadequate oral intake) (47)(48)(49) [ ]XVI. Parkinson disease requiring inpatient care (Also use Optimal Recovery Care Criteria or General Recovery Criteria as appropriate) indicated by 1 or more of the following(25): [] a) Infection (e.g., aspiration pneumonia) not treatable at alternative level of care []b) Volume depletion not responsive to emergency and observation care treatment (as appropriate) []c) Life-threatening agitation or psychotic behavior not treatable on emergency, observation care, or alternative level (e.g., residential) basis []d) Severe medication withdrawal effects (e.g., freezing, neuroleptic malignant syndrome) not responsive to emergency and observation care treatment (as appropriate) []e) Other severe manifestation not treatable at alternative level of care [ ]XVII. Amyotrophic lateral sclerosis with inpatient care needs as indicated by1 or more of the following(42): []a) Acute complications (eg, aspiration pneumonia, sepsis) requiring inpatient care (see other Optimal Recovery Guideline or General Recovery Guideline as appropriate) []b) Dehydration that is severe or persistent AND artificial support desired []c) Inadequate airway protection AND artificial support desired []d) Severe ventilatory insufficiency AND artificial support desired [ ]XVIII. Severe myopathy, neuropathy, or other neuromuscular disease indicated by 1 or more of the following(42)(52)(53)(54): []a ) New-onset severe diffuse weakness (eg, strength 3/5 or less) []b) Severe dysphagia []c) Dyspnea at rest or with minimal exertion (new) []d) Inadequate airway protection []e) Inadequate ventilation indicated by 1 or more of the following : i) Partial pressure of carbon dioxide greater than 44 mm Hg ( 5.9 kPa) (new) ii) Reduced peak expiratory flow rate (new) iii) Vital capacity less than 50% of predicted (less than 15 mL/kg) iv) Peak inspiratory force less negative than -30 cm H2O (- 2942 Pa) [ ]XVII.Complications of congenital or degenerative disease (eg, infection, seizures, dehydration, injury) not responsive to emergency and observation care treatment (as appropriate ) [C](16)(29)(30) [ ]XVIII.Suspected or confirmed nerve or muscle toxic injury, including ANY ONE of the following: [ ]a) Rhabdomyolysis(31) i) Acute renal failure ii) Dehydration that is severe or persistent iii) Altered mental status that is severe or persistent iv) Electrolyte abnormality that remains after emergency or observation level care ( as appropriate) [ ]b) Botulism(32) [ ]c) Other severe toxin-induced sign or symptom [ ]XIX. Neurologic trauma requiring inpatient treatment (medical) indicated by ANY ONE of the following(33)(34): [ ]a) Vital signs or neurologic signs more frequently than every 4 hours [ ]b) Hyperosmolar therapy [ ]c) Respiratory monitoring [ ]d) Intracranial pressure monitoring and treatment [ ]e) Stabilization and immobilization device placement (eg, braces, body jacket) [ ]f) Intubation & mechanical ventilation for airway protection or therapeutic hyperventilation [ ]g) Other treatment or monitoring needed that requires inpatient level of care [ ]XX.Complications of neurologic devices (eg, ventricular shunt, neurostimulator) requiring 1 or more of the following(35)(36): [ ]a) IV antibiotics with monitoring while awaiting culture results [ ]b) Monitoring for hydrocephalus [ ]XXI. Neurology condition symptom, or finding for which emergency and observation care have failed or are not considered appropriate. See General Criteria: Observation Care ISC, General Admission Criteria GRG, or Pediatric General Admission Criteria GRG guideline as appropriate. The original [facility] [employer] content created by [employer] has been revised. The portions of the content which have been revised are identified through the use of italic text or in bold, and [facility] has neither reviewed nor approved the modified material. All other unmodified content is copyright [facility] Please see references footnoted in the original [facility] edition 2016 Admission Criteria Met: Yes
[2016-08-09] MEDS: NORCO 10/325 PO PRN (05:15)
--- NOTE | 2016-08-09 11:09 | Progress Note ---
Assessment and Plan Assessment and plan: Patient is 60-year-old woman with a plethora of comorbidities who presents with multiple somatic complaints. Significant for chest pain and left-sided weakness. Patient is being worked up for ischemia and CVA. MRI brain, echocardiogram, stress test and carotid Doppler has been ordered. PCP Dr. Rdz which I consulted. Cardiac enzymes, troponins have been negative, CT head unremarkable. Chest x-ray pending. -Chest pain most likely GERD related with negative stress test -Left-sided weakness rule out CVA, mri pending -Left shoulder pain after fall: X-ray the shoulder -Diabetes mellitus type 2 uncontrolled: Added sliding-scale -DVT prophylaxis: Subcutaneous Lovenox -Left breast pain per Dr. Rdz's ordered breat u/s, which can be done outpatient. Patient needs outpatient mammogram with breast exam also, this should not hold up discharge. Full code History Interval history: Patient admitted today, hospital reassessment Patient seen and examined. Follow up on left-sided weakness which is still present. Overnight uneventful. No cp, sob, n/v or severe headaches. Imaging, old records, testing, labs, nursing notes reviewed. Plan discussed with patient. 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 but she also has weakness in proximal muscle and shoulder area PSY: CALM - Constitutional Vitals: Temp Pulse Resp BP Pulse Ox 98.4 F 78 18 124/74 100 08/09/16 09:37 08/09/16 09:37 08/09/16 09:37 08/09/16 09:37 08/09/16 10:56 General appearance: Present: well-nourished Results - Labs CBC & Chem 7: 08/07/16 22:50 08/07/16 22:50 Labs: Laboratory Last Values WBC 9.2 K/mm3 (4.5-11.0) 08/07/16 22:50 RBC 4.01 M/mm3 (3.65-5.03) 08/07/16 22:50 Hgb 11.4 gm/dl (10.1-14.3) 08/07/16 22:50 Hct 34.5 % (30.3-42.9) 08/07/16 22:50 MCV 86 fl (79-97) 08/07/16 22:50 MCH 28 pg (28-32) 08/07/16 22:50 MCHC 33 % (30-34) 08/07/16 22:50 RDW 14.6 % (13.2-15.2) 08/07/16 22:50 Plt Count 276 K/mm3 (140-440) 08/07/16 22:50 Lymph # Coverstitch Elastic Attacher 08/07/16 22:50 Add Manual Diff Complete 08/07/16 22:50 Total Counted 100 08/07/16 22:50 Seg Neutrophils % Coverstitch Elastic Attacher 08/07/16 22:50 Seg Neuts % (Manual) 33.0 % (40.0-70.0) L 08/07/16 22:50 Band Neutrophils % 0 % 08/07/16 22:50 Lymphocytes % (Manual) 61.0 % (13.4-35.0) H 08/07/16 22:50 Reactive Lymphs % (Man) 0 % 08/07/16 22:50 Monocytes % (Manual) 5.0 % (0.0-7.3) 08/07/16 22:50 Eosinophils % (Manual) 1.0 % (0.0-4.3) 08/07/16 22:50 Basophils % (Manual) 0 % (0.0-1.8) 08/07/16 22:50 Metamyelocytes % 0 % 08/07/16 22:50 Myelocytes % 0 % 08/07/16 22:50 Promyelocytes % 0 % 08/07/16 22:50 Blast Cells % 0 % 08/07/16 22:50 Nucleated RBC % Not Reportable 08/07/16 22:50 Seg Neutrophils # Man 3.0 K/mm3 (1.8-7.7) 08/07/16 22:50 Band Neutrophils # 0.0 K/mm3 08/07/16 22:50 Lymphocytes # (Manual) 5.6 K/mm3 (1.2-5.4) H 08/07/16 22:50 Abs React Lymphs (Man) 0.0 K/mm3 08/07/16 22:50 Monocytes # (Manual) 0.5 K/mm3 (0.0-0.8) 08/07/16 22:50 Eosinophils # (Manual) 0.1 K/mm3 (0.0-0.4) 08/07/16 22:50 Basophils # (Manual) 0.0 K/mm3 (0.0-0.1) 08/07/16 22:50 Metamyelocytes # 0.0 K/mm3 08/07/16 22:50 Myelocytes # 0.0 K/mm3 08/07/16 22:50 Promyelocytes # 0.0 K/mm3 08/07/16 22:50 Blast Cells # 0.0 K/mm3 08/07/16 22:50 WBC Morphology Not Reportable 08/07/16 22:50 Hypersegmented Neuts Not Reportable 08/07/16 22:50 Hyposegmented Neuts Not Reportable 08/07/16 22:50 Hypogranular Neuts Not Reportable 08/07/16 22:50 Smudge Cells Not Reportable 08/07/16 22:50 Toxic Granulation Not Reportable 08/07/16 22:50 Toxic Vacuolation Not Reportable 08/07/16 22:50 Dohle Bodies Not Reportable 08/07/16 22:50 Pelger-Huet Anomaly Not Reportable 08/07/16 22:50 Marisol Rods Not Reportable 08/07/16 22:50 Platelet Estimate Appears normal 08/07/16 22:50 Clumped Platelets Not Reportable 08/07/16 22:50 Plt Clumps, EDTA Not Reportable 08/07/16 22:50 Large Platelets Not Reportable 08/07/16 22:50 Giant Platelets Not Reportable 08/07/16 22:50 Platelet Satelliting Not Reportable 08/07/16 22:50 Plt Morphology Comment Not Reportable 08/07/16 22:50 RBC Morphology Not Reportable 08/07/16 22:50 Dimorphic RBCs Not Reportable 08/07/16 22:50 Polychromasia Not Reportable 08/07/16 22:50 Hypochromasia Not Reportable 08/07/16 22:50 Poikilocytosis Not Reportable 08/07/16 22:50 Anisocytosis Few 08/07/16 22:50 Microcytosis Not Reportable 08/07/16 22:50 Macrocytosis Not Reportable 08/07/16 22:50 Spherocytes Not Reportable 08/07/16 22:50 Pappenheimer Bodies Not Reportable 08/07/16 22:50 Sickle Cells Not Reportable 08/07/16 22:50 Target Cells Not Reportable 08/07/16 22:50 Tear Drop Cells Not Reportable 08/07/16 22:50 Ovalocytes Not Reportable 08/07/16 22:50 Stomatocytes Rare 08/07/16 22:50 Helmet Cells Not Reportable 08/07/16 22:50 Jane-Nelson Bodies Not Reportable 08/07/16 22:50 [place]ife Rings Not Reportable 08/07/16 22:50 Austen Cells Not Reportable 08/07/16 22:50 Bite Cells Not Reportable 08/07/16 22:50 Crenated Cell Not Reportable 08/07/16 22:50 Elliptocytes Not Reportable 08/07/16 22:50 Acanthocytes (Spur) Not Reportable 08/07/16 22:50 Rouleaux Not Reportable 08/07/16 22:50 Hemoglobin C Crystals Not Reportable 08/07/16 22:50 Schistocytes Not Reportable 08/07/16 22:50 Malaria parasites Not Reportable 08/07/16 22:50 Isaias Bodies Not Reportable 08/07/16 22:50 Hem Pathologist Commnt No 08/07/16 22:50 Sodium 136 mmol/L (137-145) L 08/07/16 22:50 Potassium 3.7 mmol/L (3.6-5.0) 08/07/16 22:50 Chloride 99.2 mmol/L (98-107) 08/07/16 22:50 Carbon Dioxide 22 mmol/L (22-30) 08/07/16 22:50 Anion Gap 19 mmol/L 08/07/16 22:50 BUN 17 mg/dL (7-17) 08/07/16 22:50 Creatinine 0.9 mg/dL (0.7-1.2) 08/07/16 22:50 Estimated GFR > 60 ml/min 08/07/16 22:50 BUN/Creatinine Ratio 18.88 % 08/07/16 22:50 Glucose 204 mg/dL (65-100) H 08/07/16 22:50 POC Glucose 182 (70-105) H 08/08/16 23:00 Calcium 9.2 mg/dL (8.4-10.2) 08/07/16 22:50 Total Creatine Kinase 235 units/L (30-135) H 08/08/16 14:32 CK-MB (CK-2) 2.7 ng/mL (0.0-4.0) 08/08/16 14:32 CK-MB (CK-2) Rel Index 1.1 (0-4) 08/08/16 14:32 Troponin T < 0.010 ng/mL (0.00-0.029) 08/08/16 14:32 Triglycerides 133 mg/dL (2-149) 08/09/16 04:17 Cholesterol 147 mg/dL (50-199) 08/09/16 04:17 LDL Cholesterol Direct 58 mg/dL (50-130) 08/09/16 04:17 HDL Cholesterol 63 mg/dL (40-59) H 08/09/16 04:17 Cholesterol/HDL Ratio 2.33 % 08/09/16 04:17
[2016-08-09] MEDS ORDERED: PNEUMOVAX 23 IM ONE (12:00)
[2016-08-09 13:00] VITALS: BP 128/79
[2016-08-09] MEDS ORDERED: ATIVAN IV ONE (13:30)
--- NOTE | 2016-08-09 14:05 | Discharge Summary ---
Providers - Providers Date of Admission: 08/08/16 04:20 Date of discharge: 08/09/16 Attending physician: BRYNN MOLINA 08/08/16 08:09 Consult to Physician [CONS] Routine Consulting Provider: ASAD RDZ Reason For Exam: your pt, evaluate for cva & multiple somatic c/o Place consult to:: Kajal SAHNI Notified:: Kajal Primary care physician: OIL DRILLER Hospitalization Condition: Stable Hospital course: Patient is 60-year-old woman with a plethora of comorbidities who presents with multiple somatic complaints. Significant for chest pain and left-sided weakness. Patient is being worked up for ischemia and CVA. MRI brain, echocardiogram, stress test and carotid Doppler has been ordered. PCP Dr. Rdz which I consulted. Cardiac enzymes, troponins have been negative, CT head unremarkable. Chest x-ray pending. -Chest pain most likely GERD related with negative stress test -Left-sided weakness rule out CVA, mri pending -Left shoulder pain after fall: X-ray the shoulder -Diabetes mellitus type 2 uncontrolled: Added sliding-scale -DVT prophylaxis: Subcutaneous Lovenox -Left breast pain per Dr. Rdz's ordered breat u/s, which can be done outpatient. Patient needs outpatient mammogram with breast exam also, this should not hold up discharge. Full code She is too claustrophobic for mri despite 1mg iv ativan, deficit gone, ?TIA will discharge. Disposition: DISCHARGED TO HOME OR SELFCARE Time spent for discharge: 35 minutes Core Measure Documentation - Palliative Care Palliative Care/ Comfort Measures: Not Applicable - Core Measures Any of the following diagnoses?: none - VTE Discharge Requirements Deep Vein Thrombosis/Pulmonary Embolism Present on Admission: No Has pt received <5 days of overlap therapy or INR<2.0: No Anticoagulant overlap therapy prescribed at discharge: No Contraindication No Overlap Therapy order at DC: Not Indicated - Stroke Discharge Requirements Statin for LDL = or >70 mg/dl on DC: Not Applicable (LDL only 58) Anticoag for atrial fib/atrial flutter: Not Applicable Antithrombotic for ischemic stroke: Yes Exam - Physical Exam Narrative exam: GEN: WDWN, NAD, AWAKE, ALERT, ORIENTATED 3 HEENT: NCAT, PERRL, EOMI, OP CLEAR NECK: SUPPLE, NO THYROMEGALY, NO JVD, NO LAD CVS: RRR, NORMAL S1S2 LUNGS/CHEST: CTA B, NORMAL CHEST EXPANSION B, GOOD AIR ENTRY B ABD: SOFT NTND, GBS, NO REBOUND OR GUARDING EXT/SKIN: NO SIGNIFICANT EDEMA OR RASH MSK: FROM X 4 EXTREMITIES NEURO: CN 2-12 GROSSLY INTACT, NO FOCAL DEFICITS PSY: CALM - Constitutional Vitals: Temp Pulse Resp BP Pulse Ox 98.0 F 74 18 128/79 99 08/09/16 12:51 08/09/16 12:51 08/09/16 12:51 08/09/16 12:51 08/09/16 12:51 Plan Activity: advance as tolerated (no strenous activites until cleared by PCP. ) Diet: low salt Follow up with: PRIMARY CAREMD [Primary Care Provider] - 3-5 Days
--- NOTE | 2016-08-11 08:24 | Vascular Lab Report ---
CAROTID DUPLEX STUDY: RIGHT PSVEDV CCA PROX: [id number] CCA DIST: 8026 ICA PROX: 5014 ICA MID: 9546 ICA DIST: 8026 ECA: 9020 VERT: 70 26 LEFT PSVEDV CCA PROX:[id number] CCA DIST: 7825 ICA PROX: 9025 ICA MID: 8522 ICA DIST: 7830 ECA: 5610 VERT: 71 20 REASON FOR EXAM: Stroke. COMMENTS ON THE RIGHT: Doppler frequency analysis is consistent with 16 to 49 percent diameter reduction of the internal carotid artery. Minimal amount of plaque is seen. The common carotid artery is patent. The external carotid artery is patent. The vertebral artery has antegrade flow. COMMENTS ON THE LEFT: Doppler frequency analysis is consistent with 16 to 49 percent diameter reduction of the internal carotid artery. Minimal amount of plaque is seen. The common carotid artery is patent. The external carotid artery is patent. The vertebral artery has antegrade flow. Left echogenic density was noted in the thyroid gland suggestive of a solid mass measuring 0.32 X 0.39 cm. Consider formal interrogation with full thyroid ultrasound ultrasound. IMPRESSION: Less than 50% diameter reduction in the internal carotid arteries bilaterally. Possible left thyroid mass. Consider repeat carotid artery duplex in 12 months.
== END 2016-08-09 16:18 | disposition home or self-care (01) | DRG 392 ==
LOC: ED 20:47 → 4A 08-08 04:20
PROVIDERS: ADMIT Internal Medicine; ATTEND Internal Medicine
PROC: 3E0234Z Introduction of Serum, Toxoid and Vaccine into Muscle, Percutaneous Approach (ICD-10-PCS; principal; 2016-08-08)
DX: K21.9 Gastro-esophageal reflux disease without esophagitis (principal); J44.1 Chronic obstructive pulmonary disease with (acute) exacerbation; I10 Essential (primary) hypertension; G89.29 Other chronic pain; M54.9 Dorsalgia, unspecified; M19.90 Unspecified osteoarthritis, unspecified site; E11.65 Type 2 diabetes mellitus with hyperglycemia; Z82.49 Family history of ischemic heart disease and other diseases of the circulatory system
CPT/HCPCS: 36415; 70450; 70551; 71010; 72100; 78452; 80048; 80061; 82550; 82553; 82962; 84484; 85007; 85025; 90732; 93005; 93010; 93017; 93306; 93880; 96374; 96375; A9502; J1170; J1650; J1885; J2060; J2405; J2785

== ENCOUNTER 2016-10-20 14:08 | Outpatient (CLI) | payer MEDICARE ==
--- NOTE | 2016-10-20 14:48 | Mammography Report ---
Bilateral diagnostic mammogram: Compared to 11/13/14. CAD study utilized. History: Unspecified right and left breast pain. Findings: Predominantly adipose tissue bilaterally. No distinct mass or microcalcification. Benign calcifications. Benign axillary nodes. Impression: Benign findings. Annual followup recommended. BI-RADS CATEGORY: 2 = Benign ACR BI-RADS MAMMOGRAPHIC CODES: 0 = Needs additional imaging evaluation; 1 = Negative; 2 = Benign; 3 = Probably benign; 4 = Suspicious; 5 = Malignant; 6 = Known biopsy-proven malignancy COMMENT: 1. Dense breast tissue, i.e., adenosis, fibrocystic changes, etc., may obscure an underlying neoplasm. 2. Approximately 10% of cancers are not detected with mammography. 3. A negative mammography report should not delay biopsy if a clinically suspicious mass is present. COMMENT: Patient follow-up letters are generated in [employer]. There
== END 2016-10-20 14:09 | disposition home or self-care (01) ==
LOC: MAMMO 14:08
PROVIDERS: ATTEND Internal Medicine Hematology & Oncology
DX: N64.4 Mastodynia (principal); R92.1 Mammographic calcification found on diagnostic imaging of breast; I10 Essential (primary) hypertension; E11.9 Type 2 diabetes mellitus without complications; E78.00 Pure hypercholesterolemia, unspecified; J45.909 Unspecified asthma, uncomplicated; Z87.891 Personal history of nicotine dependence
CPT/HCPCS: 77066; G0204

== ENCOUNTER 2017-11-04 22:13 | Observation (INO) | payer MEDICARE ==
[2017-11-05 00:31] LABS: Basophils % (Auto) 0.6 % (0.0-1.8); Eosinophils # (Auto) 0.1 K/mm3 (0.0-0.4); Eosinophils % (Auto) 0.7 % (0.0-4.3); Hematocrit 37.5 % (30.3-42.9); Hemoglobin 12.5 gm/dl (10.1-14.3); Lymphocytes # (Auto) 2.6 K/mm3 (1.2-5.4); Lymphocytes % (Auto) 33.4 % (13.4-35.0); Mean Corpuscular HGB Conc 33 % (30-34); Mean Corpuscular Hemoglobin 29 pg (28-32); Mean Corpuscular Volume 88 fl (79-97); Monocytes # (Auto) 0.6 K/mm3 (0.0-0.8); Monocytes % (Auto) 7.7 % (0.0-7.3); Platelet Count 283 K/mm3 (140-440); Red Blood Count 4.27 M/mm3 (3.65-5.03); Red Cell Distribution Width 13.8 % (13.2-15.2)
[2017-11-05 00:45] LABS: BUN/Creatinine Ratio 17; Blood Urea Nitrogen 15 mg/dL (7-17); Calcium 9.8 mg/dL (8.4-10.2); Hemolysis Index 15
[2017-11-05 01:03] LABS: Bilirubin,Urine NEG (Negative); Blood,Urine NEG (Negative); Color,Urine Yellow (Yellow); Mucus,Urine FEW /HPF
[2017-11-05] MEDS ORDERED: MORPHINE IV ONE ×2 (02:50→05:50)
[2017-11-05] MEDS ORDERED: ZOFRAN IV ONE (02:51)
[2017-11-05] MEDS ORDERED: ASPIRIN PO ONE (02:51)
--- NOTE | 2017-11-05 02:53 | Emergency Department Report ---
ED Chest Pain HPI - General Chief Complaint: Chest Pain Stated Complaint: HIP PAIN Time Seen by Provider: 11/05/17 02:49 Source: patient Mode of arrival: Ambulatory Limitations: No Limitations - History of Present Illness Initial Comments: Patient is a 61-year-old female presents to emergency room with complaints of chest pain and shortness of breath 2 days. Patient states that the chest pain shows breath or worsening. Patient states that the chest pain and shortness of breath are better with rest and worse with movement and exertion. Patient denies fever and chills. Patient denies abdominal pain. Patient complains of nausea/vomiting/diarrhea 2 days. Patient is also complaining of right hip pain after a fall 3 days ago. Patient states the the hip pain is a 10 out of 10. And is worse with walking and movement. Patient states the pain is better with rest. MD Complaint: chest pain -: Sudden Pain Location: left chest Pain Radiation: none Severity scale (0 -10): 6 Quality: tightness, aching, heaviness Consistency: constant Improves With: rest Worsens With: exertion re: nausea, vomting, dyspnea. denies: diaphoresis, sense of impending doom Other Symptoms: denies: cough, fever, syncope, rash, acid taste in mouth, leg swelling, palpitations, burping Treatments Prior to Arrival: none Aspirin use within the Past 7 Days: (1) Yes - Related Data On Oral Contraceptives: No Home Medications Medication Instructions Recorded Confirmed Last Taken Insulin Aspart [NovoLOG 100 See Protocol SQ AC 12/23/12 08/08/16 08/07/16 UNITS/ML VIAL] Insulin Glargine,Hum.rec.anlog 30 unit SQ QHS 12/23/12 08/08/16 08/07/16 [Lantus Solostar] Hydrocodone Bit/Acetaminophen 20 mg PO TID PRN 08/08/16 08/08/16 08/07/16 [Lortab 5-500 Tablet] Previous Rx's Medication Instructions Recorded Last Taken Type Ondansetron [Zofran ORAL LIQ] 4 mg PO TID PRN #15 oralsyr 12/24/12 08/07/16 Rx Atenolol [Tenormin] 50 mg PO DAILY #30 tablet 01/04/13 08/07/16 Rx Promethazine [Phenergan SUPPOS] 25 mg MS Q6H PRN #60 supp.rect 01/04/13 Rx Potassium Chloride [K-Dur] 40 meq PO QDAY #2 tablet 04/13/13 08/06/16 Rx Aspirin [Aspirin TAB] 325 mg PO QDAY #30 tablet 08/09/16 Unknown Rx Allergies Allergy/AdvReac Type Severity Reaction Status Date / Time No Known Allergies Allergy Verified 11/04/17 23:08 Heart Score - HEART Score History: Moderately suspicious EKG: Normal Age: 45-65 Risk factors: 1-2 risk factors Troponin: < normal limit HEART Score: 3 ED Review of Systems ROS: Stated complaint: HIP PAIN Other details as noted in HPI Constitutional: denies: chills, fever Eyes: denies: eye pain, eye discharge, vision change ENT: denies: ear pain, throat pain Respiratory: shortness of breath. denies: cough, wheezing Cardiovascular: chest pain. denies: palpitations Endocrine: no symptoms reported Gastrointestinal: denies: abdominal pain, nausea, diarrhea Genitourinary: denies: urgency, dysuria, discharge Musculoskeletal: denies: back pain, joint swelling, arthralgia Skin: denies: rash, lesions Neurological: denies: headache, weakness, paresthesias Psychiatric: denies: anxiety, depression Hematological/Lymphatic: denies: easy bleeding, easy bruising ED Past Medical Hx - Past Medical History Previous Medical History?: Yes Hx Hypertension: Yes Hx Heart Attack/AMI: No Hx Congestive Heart Failure: No Hx Diabetes: Yes Hx Deep Vein Thrombosis: No Hx Pulmonary Embolism: No Hx Liver Disease: No Hx Renal Disease: No Hx Sickle Cell Disease: No Hx Arthritis: Yes Hx Seizures: No Hx Asthma: Yes Hx COPD: No Hx Tuberculosis: No Hx Dementia: No Hx HIV: No Additional medical history: Sciatica, gastroparesis. negative stress 07/2015. cardiac cath 11/14/14 showing normal coronary arteries an EF of 60-65% - Surgical History Past Surgical History?: Yes Hx Coronary Stent: No Hx Pacemaker: No Hx Internal Defibrillator: No Additional Surgical History: back surgery. bowel obstruction surgery. - Family History Family history: hypertension - Social History Smoking Status: Never Smoker Substance Use Type: None - Medications Home Medications: Home Medications Medication Instructions Recorded Confirmed Last Taken Type Insulin Aspart [NovoLOG 100 See Protocol SQ AC 12/23/12 08/08/16 08/07/16 History UNITS/ML VIAL] Insulin Glargine,Hum.rec.anlog 30 unit SQ QHS 12/23/12 08/08/16 08/07/16 History [Lantus Solostar] Ondansetron [Zofran ORAL LIQ] 4 mg PO TID PRN #15 oralsyr 12/24/12 08/08/16 Rx Atenolol [Tenormin] 50 mg PO DAILY #30 tablet 01/04/13 08/08/16 08/07/16 Rx Promethazine [Phenergan SUPPOS] 25 mg MS Q6H PRN #60 supp.rect 01/04/1307/28/13 Rx Potassium Chloride [K-Dur] 40 meq PO QDAY #2 tablet 04/13/13 08/08/16 08/06/16 Rx Hydrocodone Bit/Acetaminophen 20 mg PO TID PRN 08/08/16 08/08/16 08/07/16 History [Lortab 5-500 Tablet] Aspirin [Aspirin TAB] 325 mg PO QDAY #30 tablet 08/09/16 Unknown Rx ED Physical Exam - General Limitations: No Limitations General appearance: alert, in no apparent distress - Head Head exam: Present: atraumatic, normocephalic - Eye Eye exam: Present: normal appearance - ENT ENT exam: Present: mucous membranes moist - Neck Neck exam: Present: normal inspection - Respiratory Respiratory exam: Present: normal lung sounds bilaterally. Absent: respiratory distress - Cardiovascular Cardiovascular Exam: Present: regular rate, normal rhythm. Absent: systolic murmur, diastolic murmur, rubs, gallop - GI/Abdominal GI/Abdominal exam: Present: soft, normal bowel sounds - Extremities Exam Extremities exam: Present: normal inspection, tenderness (tenderness over right hip) - Back Exam Back exam: Present: normal inspection - Neurological Exam Neurological exam: Present: alert, oriented X3 - Psychiatric Psychiatric exam: Present: normal affect, normal mood - Skin Skin exam: Present: warm, dry, intact, normal color. Absent: rash ED Course Vital Signs 11/04/17 11/04/17 11/05/17 22:56 23:08 02:02 Temperature 99.4 F 99.4 F Pulse Rate 103 H 103 H 136 H Respiratory 14 18 Rate Blood Pressure 174/85 174/85 O2 Sat by Pulse 97 97 Oximetry 11/05/17 11/05/17 11/05/17 02:30 02:49 03:00 Temperature Pulse Rate 100 H 100 H Respiratory 23 18 20 Rate Blood Pressure 166/106 158/81 O2 Sat by Pulse 97 98 93 Oximetry 11/05/17 11/05/17 11/05/17 03:25 03:30 03:55 Temperature Pulse Rate 98 H Respiratory 18 18 18 Rate Blood Pressure 158/81 O2 Sat by Pulse 92 Oximetry 11/05/17 11/05/17 11/05/17 04:00 04:50 05:00 Temperature Pulse Rate 100 H Respiratory 17 Rate Blood Pressure 156/88 158/81 144/94 O2 Sat by Pulse 90 96 90 Oximetry 11/05/17 11/05/17 05:30 06:00 Temperature Pulse Rate Respiratory 18 Rate Blood Pressure 156/88 O2 Sat by Pulse 97 Oximetry - Reevaluation(s) Reevaluation #1: Hospitalist consulted for admission. Dr. Peña to admit patient. Discussed case fully with Dr. Peña. Dr. Peña to assume care. Plan of care discussed with patient. Patient agrees with plan of care and admission. All results discussed with patient 11/05/17 04:51 LADONNA score - Ladonna Score Age > 65: (0) No Aspirin use within the Past 7 Days: (0) No 3 or more CAD Risk Factors: (1) Yes 2 or more Angina events in past 24 hrs: (0) No Known CAD with more than 50% Stenosis: (0) No Elevated Cardiac Markers: (0) No ST Deviation Greater than 0.5mm: (0) No LADONNA Score: 1 ED Medical Decision Making - Lab Data Result diagrams: 11/05/17 00:02 11/05/17 00:02 - EKG Data -: EKG Interpreted by Nm EKG shows normal: sinus rhythm, axis, intervals, QRS complexes, ST-T waves Rate: normal - Radiology Data Radiology results: report reviewed, image reviewed No acute findings - Medical Decision Making Patient is 61-year-old female that presents emergent with chest pain shortness of breath times today. Patient to be admitted to the hospitalist service for further evaluation and treatment. Patient also had a fall 3 days ago and complained of right hip pain. X-ray negative. - Differential Diagnosis cp. sob. acs. bp. hip pain. n/v Critical care attestation.: If time is entered above; I have spent that time in minutes in the direct care of this critically ill patient, excluding procedure time. ED Disposition Clinical Impression: Gastroenteritis, Hip pain, right, Shortness of breath Chest pain Qualifiers: Chest pain type: other chest pain Qualified Code(s): R07.89 - Other chest pain Disposition: OP ADMIT IP TO THIS HOSP Is pt being admited?: Yes Does the pt Need Aspirin: No Condition: Serious Time of Disposition: 04:55
--- NOTE | 2017-11-05 05:36 | XRay Report ---
FINAL REPORT EXAM: XR HIP 2-3V RT HISTORY: hip pain. fall COMPARISONS: None. FINDINGS: The AP and lateral views right hip Right hip joint is intact. No displaced fracture identified. Mild bilateral hip osteoarthrosis. Mild degenerative findings involving the sacroiliac joints and pubic symphysis. Pelvic phleboliths are noted. Additional bulky calcifications may be associated with uterine fibroids. Partially imaged lower spine fusion hardware. IMPRESSION: Intact right hip joint without acute finding. Consider additional imaging including CT for worsening/persistent symptoms.
[2017-11-05] MEDS ORDERED: SODIUM CHLORIDE FLUSH SYRINGE 10 ML IV PRN (06:20)
[2017-11-05] MEDS ORDERED: TYLENOL PO PRN (06:20)
[2017-11-05] MEDS ORDERED: D50W (25GM) Syringe IV PRN (06:20)
--- NOTE | 2017-11-05 06:31 | History and Physical Report ---
History of Present Illness Date of examination: 11/05/17 History of present illness: This is a 61-year-old woman with a history of hypertension, diabetes comes to emergency room for evaluation of chest pain. The pain is across her chest, described as sharp, ongoing over the last 3 days, intermittent in nature over 1 minute, intensity 5/10, radiating to the back. She had a stress test less than a year ago which was negative Pain is relieved with morphine, and identified an exacerbating factor. The patient fell down the stairs, complained of right hip pain. In the emergency room she developed abdominal pain on the right side, sharp pain, intermittent in nature, only with a fairly long and last her, intensity 4 with 10, no radiation. Admits to nausea, shortness of breath, no diaphoresis or palpitation Review of systems Constitutional: no weight loss, chills, fever Ears, eyes, nose, mouth and throat: no nasal congestion, no nasal discharge, no sinus pressure, no vision change, no red eye. Neck: No neck pain or rigidity. Cardiovascular: no palpitations Respiratory: no cough Gastrointestinal: no hematochezia Genitourinary : no frequency , no hematuria Musculoskeletal: no joint swelling or muscle ache Integumentary: no rash, no pruritis Neurological: no parathesias, no numbness, no focal weakness Endocrine: no cold or heat intolerance, no polyuria or polydipsia Hematologic/Lymphatic: no easy bruising, no easy bleeding, no gland swelling Allergic/Immunologic: no urticaria, no angioedema. PAST MEDICAL HISTORY: hypertension, diabetes PAST SURGICAL HISTORY: None SOCIAL HISTORY: No alcohol, no drugs, tobacco FAMILY HISTORY: Hypertension Medications and Allergies Allergies Allergy/AdvReac Type Severity Reaction Status Date / Time No Known Allergies Allergy Verified 11/04/17 23:08 Home Medications Medication Instructions Recorded Confirmed Last Taken Type Insulin Aspart [NovoLOG 100 See Protocol SQ AC 12/23/12 08/08/16 08/07/16 History UNITS/ML VIAL] Insulin Glargine,Hum.rec.anlog 30 unit SQ QHS 12/23/12 08/08/16 08/07/16 History [Lantus Solostar] Ondansetron [Zofran ORAL LIQ] 4 mg PO TID PRN #15 oralsyr 12/24/12 08/08/16 Rx Atenolol [Tenormin] 50 mg PO DAILY #30 tablet 01/04/13 08/08/16 08/07/16 Rx Promethazine [Phenergan SUPPOS] 25 mg [place] Q6H PRN #60 supp.rect 01/04/1307/28/13 Rx Potassium Chloride [K-Dur] 40 meq PO QDAY #2 tablet 04/13/13 08/08/16 08/06/16 Rx Hydrocodone Bit/Acetaminophen 20 mg PO TID PRN 08/08/16 08/08/16 08/07/16 History [Lortab 5-500 Tablet] Aspirin [Aspirin TAB] 325 mg PO QDAY #30 tablet 08/09/16 Unknown Rx Active Meds: Active Medications Acetaminophen (Tylenol) 650 mg PO Q4H PRN PRN Reason: Pain MILD(1-3)/Fever >100.5/NAVARRETE Dextrose (D50w (25gm) Syringe) 50 ml IV PRN PRN PRN Reason: Hypoglycemia Enoxaparin Sodium (Lovenox) 30 mg SUB-Q QDAY MICKIE Insulin Human Lispro (Humalog) 0 unit SUB-Q ACHS MICKIE; Protocol Exam - Physical Exam Narrative exam: Gen. appearance: Patient lying in bed, no apparent distress HEENT: Normocephalic, atraumatic, pupils equally round and reactive to light, extraocular movement intact, and no sclericterus,. No JVD or thyromegaly or nodule,neck supple, no carotid bruit ,mucous membranes moist, no exudate or erythema Heart: S1, S2, regular rate and rhythm Lungs: Clear bilaterally, breathing comfortable Abdomen: Positive bowel sounds, tender on the right side of the abdomen, nondistended, no organomegaly Extremity:no edema cyanosis, clubbing Skin: no rash, dry, warm Neuro: Oriented 3, cranial nerves II-12 intact, speech is fluent, motor and sensory intact - Constitutional Vitals: Temp Pulse Resp BP Pulse Ox 99.4 F 100 H 18 156/88 97 11/04/17 23:08 11/05/17 04:00 11/05/17 06:00 11/05/17 05:30 11/05/17 05:30 Results - Labs CBC & Chem 7: 11/05/17 00:02 11/05/17 00:02 Labs: Abnormal lab results 11/05/17 11/05/17 Range/Units 00:02 00:02 Patrick % (Auto) 7.7 H (0.0-7.3) % Glucose 253 H (65-100) mg/dL - Imaging and Cardiology EKG: image reviewed Assessment and Plan Assessment Abdominal pain Chest pain Right hip pain Hypertension Diabetes type 2 Plan Admit to medicine Obtain CAT scan of the abdomen and pelvis, right hip Check cardiac enzymes, consult cardiology Check fingersticks, Initiate insulin sliding scal IV hydralazine as needed for blood pressure control IV morphine, DVT prophylaxis
--- NOTE | 2017-11-05 08:08 | Cat Scan Report ---
FINAL REPORT EXAM: CT LOWER EXTREMITY RT WO CON HISTORY: rt hip pain, fall TECHNIQUE: CT imaging is acquired through the right hip/pelvis without contrast. Transaxial, coronal and sagittal reformations are provided. PRIORS: Right hip radiographs of the same date FINDINGS: Intact right hip joint. Mild bilateral hip osteoarthrosis. No pelvic or proximal femur fractures. Lumbosacral fusion hardware appears intact. Mild degenerative findings involving the sacroiliac joints and pubic symphysis. Pelvic phleboliths are present. Dystrophic calcification associated with uterine fibroids. Please see CT abdomen and pelvis of the same date. IMPRESSION: No proximal femur or pelvic fracture identified. There is mild bilateral hip osteoarthrosis.
--- NOTE | 2017-11-05 08:28 | Cat Scan Report ---
FINAL REPORT EXAM: CT ABDOMEN PELVIS WO CON HISTORY: abd pain TECHNIQUE: CT images obtained through the Abdomen and Pelvis without contrast. Transaxial,coronal and sagittal reformats are provided. PRIORS: 08/02/2015 FINDINGS: Imaged intrathoracic contents are unremarkable. Kidneys are normal in size, axis and position. No hydroureteronephrosis. Nonobstructive right renal stones measure up to 5 millimeters. No left-sided hydronephrosis or nephrolithiasis.. No stones are seen within the urinary bladder. Anteverted uterus with fibroid associated dystrophic calcification. Unremarkable noncontrast appearance of the liver, spleen and adrenal glands. Pancreatic atrophy. Cholecystectomy. Prominence of the common duct is within normal limits. Hollow enteric organs are normal in caliber. Upper abdominal anastomotic sutures. There is evidence of stasis and a point of relative transition in small bowel caliber subjacent to anterior abdominal wall surgical scarring on axial series 2, images 118-128. No frankly dilated loops of small bowel. Maximal small-bowel dimension in the pelvis is 2.5 cm. Pelvic small bowel loops are decreased in caliber compared to 08/02/2015. Normal caliber colon. No acute appendicitis. Rectus diastasis and fat containing incisional hernia. Superficial soft tissues are otherwise unremarkable. No intra-abdominal free air/fluid or lymphadenopathy. Aorta is normal in course and caliber. Superficial soft tissues are unremarkable. No acute or aggressive appearing skeletal findings. Laminectomy and posterior fusion hardware at L4-L5 and L5-S1 appears unchanged and intact compared to prior. IMPRESSION: No acute findings in the abdomen or pelvis. Postoperative findings involving the anterior abdominal wall and subjacent small bowel and colon as detailed above. No current bowel obstruction, however there is evidence of stasis around the region of patient's anterior abdominal wall scar with subjacent adherent loops of bowel. If patient has progressive nausea and vomiting, consider follow-up CT abdomen and pelvis with intravenous and positive enteric contrast.
[2017-11-05] MEDS: HumaLOG SUB-Q SCH ×4 (08:35→22:23)
[2017-11-05] MEDS ORDERED: MORPHINE ONE (10:25)
[2017-11-05] MEDS ORDERED: ASPIRIN ONE (10:26)
[2017-11-05] MEDS ORDERED: LOVENOX SUB-Q ONE (10:26)
[2017-11-05] MEDS: ASPIRIN PO SCH (10:29)
[2017-11-05] MEDS: LOVENOX SUB-Q SCH (10:29)
[2017-11-05] MEDS: SODIUM CHLORIDE FLUSH SYRINGE 10 ML IV SCH ×2 (10:29→22:23)
[2017-11-05] MEDS: TENORMIN PO SCH (10:30)
--- NOTE | 2017-11-05 10:38 | Progress Note ---
Assessment and Plan Abdominal pain Chest pain Right hip pain Hypertension Diabetes type 2 Plan CAT scan of the abdomen and pelvis, right hip were nl Check cardiac enzymes ere nl, consulted cardiology Check fingersticks, Initiate insulin sliding scale ACEI, BB, ASA IV hydralazine as needed for blood pressure control IV morphine, DVT prophylaxis Subjective Date of service: 11/05/17 Principal diagnosis: chest pain, abdominal pain, hypertension, DM. Interval history: Still having no chest pain. No nausea no vomiting. Denies any fever. Reviewed laboratory radiological data. Objective - Exam Narrative Exam: Constitutional: Well-nourished well-developed. In no distress Head: Normocephalic atraumatic Eyes: Pupils are equal round and reactive to light Nose: No enlarged turbinates, no septal deviation. Mouth: Moist mucous membranes. Neck: Supple no thyromegaly. No bruit. No JVD Heart: Regular rate and rhythm, S1-S2 abnormal. No rubs murmurs or gallop Lungs: Clear to auscultation bilaterally no rales or rhonchi Abdomen: Soft, nontender. Bowel sound are present. Extremities: No edema no cyanosis and no clubbing. Neuro: Alert oriented Oriented x3. No focal sensory or motor deficit. Skin: No rashes no hyperemic spots Psychiatry: Euthymic. Calm. - Constitutional Vitals: Vital Signs - 12hr 11/04/17 11/04/17 11/05/17 22:56 23:08 02:02 Temperature 99.4 F 99.4 F Pulse Rate 103 H 103 H 136 H Respiratory 14 18 Rate Blood Pressure 174/85 174/85 O2 Sat by Pulse 97 97 Oximetry 11/05/17 11/05/17 11/05/17 02:30 02:49 03:00 Temperature Pulse Rate 100 H 100 H Respiratory 23 18 20 Rate Blood Pressure 166/106 158/81 O2 Sat by Pulse 97 98 93 Oximetry 11/05/17 11/05/17 11/05/17 03:25 03:30 03:55 Temperature Pulse Rate 98 H Respiratory 18 18 18 Rate Blood Pressure 158/81 O2 Sat by Pulse 92 Oximetry 11/05/17 11/05/17 11/05/17 04:00 04:50 05:00 Temperature Pulse Rate 100 H Respiratory 17 Rate Blood Pressure 156/88 158/81 144/94 O2 Sat by Pulse 90 96 90 Oximetry 11/05/17 11/05/17 11/05/17 05:30 06:00 07:00 Temperature Pulse Rate Respiratory 18 16 Rate Blood Pressure 156/88 O2 Sat by Pulse 97 Oximetry - Labs CBC & Chem 7: 11/05/17 00:02 11/05/17 00:02 Labs: Abnormal lab results 11/05/17 11/05/17 11/05/17 Range/Units 00:02 00:02 06:39 [place]field % (Auto) 7.7 H (0.0-7.3) % D-Dimer 658.24 H (0-234) ng/mlDDU Glucose 253 H (65-100) mg/dL POC Glucose (70-105) 11/05/17 Range/Units 08:39 Whitfield % (Auto) (0.0-7.3) % D-Dimer (0-234) ng/mlDDU Glucose (65-100) mg/dL POC Glucose 202 H (70-105)
--- NOTE | 2017-11-05 11:53 | Consultation ---
History of Present Illness Consult date: 11/05/17 Requesting physician: GALLO BERGER Consult reason: chest pain History of present illness: This is a 61-year-old -[place] female with history of hypertension diabetes cholesterol who fell yesterday after feeling and numbness in her right leg patient's CAT scan of the hip did not reveal any fracture but has pain on palpation patient also has chest pain has been going on for 23 months sharp in nature nonradiating no aggravating or relieving factors lasting for seconds to minutes no nausea no vomiting no syncope Past History Past Medical History: diabetes, hypertension, hyperlipidemia, other (TIA) Past Surgical History: Other (abdominal surgery for bowel obstruction) Social history: denies: smoking, alcohol abuse, prescription drug abuse Family history: denies: no significant family history Medications and Allergies Allergies Allergy/AdvReac Type Severity Reaction Status Date / Time No Known Allergies Allergy Verified 11/04/17 23:08 Home Medications Medication Instructions Recorded Confirmed Last Taken Type Insulin Aspart [NovoLOG 100 See Protocol SQ AC 12/23/12 08/08/16 08/07/16 History UNITS/ML VIAL] Insulin Glargine,Hum.rec.anlog 30 unit SQ QHS 12/23/12 08/08/16 08/07/16 History [Lantus Solostar] Ondansetron [Zofran ORAL LIQ] 4 mg PO TID PRN #15 oralsyr 12/24/12 08/08/16 Rx Atenolol [Tenormin] 50 mg PO DAILY #30 tablet 01/04/13 08/08/16 08/07/16 Rx Promethazine [Phenergan SUPPOS] 25 mg [place] Q6H PRN #60 supp.rect 01/04/1307/28/13 Rx Potassium Chloride [K-Dur] 40 meq PO QDAY #2 tablet 04/13/13 08/08/16 08/06/16 Rx Hydrocodone Bit/Acetaminophen 20 mg PO TID PRN 08/08/16 08/08/16 08/07/16 History [Lortab 5-500 Tablet] Aspirin [Aspirin TAB] 325 mg PO QDAY #30 tablet 08/09/16 Unknown Rx Active Meds: Active Medications Acetaminophen (Tylenol) 650 mg PO Q4H PRN PRN Reason: Pain MILD(1-3)/Fever >100.5/NAVARRETE Aspirin (Aspirin) 325 mg PO QDAY [facility] Last Admin: 11/05/17 10:29 Dose: 325 mg Atenolol (Tenormin) 50 mg PO DAILY [facility] Last Admin: 11/05/17 10:30 Dose: Not Given Dextrose (D50w (25gm) Syringe) 50 ml IV PRN PRN PRN Reason: Hypoglycemia Enoxaparin Sodium (Lovenox) 40 mg SUB-Q QDAY [facility] Last Admin: 11/05/17 10:29 Dose: 40 mg Insulin Glargine (Lantus) 30 units SUB-Q QHS [facility] Insulin Human Lispro (Humalog) 0 unit SUB-Q ACHS [facility]; Protocol Last Admin: 11/05/17 08:35 Dose: 4 unit Lisinopril (Zestril) 40 mg PO QDAY [facility] Morphine Sulfate (Morphine) 2 mg IV Q4H PRN PRN Reason: Pain, Moderate (4-6) Ondansetron HCl (Zofran) 4 mg IV Q4H PRN PRN Reason: Nausea And Vomiting Sodium Chloride (Sodium Chloride Flush Syringe 10 Ml) 10 ml IV BID [facility] Last Admin: 11/05/17 10:29 Dose: 10 ml Sodium Chloride (Sodium Chloride Flush Syringe 10 Ml) 10 ml IV PRN PRN PRN Reason: LINE FLUSH Review of Systems All systems: negative (as per the HPI) Physical Examination Vital Signs Temp Pulse Resp BP Pulse Ox 99.4 F 103 H 14 174/85 97 11/04/17 22:56 11/04/17 22:56 11/04/17 22:56 11/04/17 22:56 11/04/17 22:56 General appearance: no acute distress, well-nourished HEENT: Positive: PERRL, Mucus Membranes Moist Neck: Positive: neck supple, trachea midline Cardiac: Positive: Reg Rate and Rhythm, S1/S2. Negative: Audible Murmur Lungs: Positive: clear to auscultation, Normal Breath Sounds Neuro: Positive: Grossly Intact Abdomen: Positive: Soft, Active Bowel Sounds. Negative: Tender, Distended Female genitourinary: deferred Skin: Positive: Clear Incision: Cardiac Cath Site Musculoskeletal: No Pain, Normal Range of Motion Extremities: Present: normal. Absent: edema Results 11/05/17 00:02 11/05/17 00:02 CBC 11/05/17 Range/Units 00:02 WBC 7.9 (4.5-11.0) K/mm3 RBC 4.27 (3.65-5.03) M/mm3 Hgb 12.5 (10.1-14.3) gm/dl Hct 37.5 (30.3-42.9) % Plt Count 283 (140-440) K/mm3 Lymph # 2.6 (1.2-5.4) K/mm3 Hardy # 0.6 (0.0-0.8) K/mm3 Eos # 0.1 (0.0-0.4) K/mm3 Baso # 0.0 (0.0-0.1) K/mm3 Comprehensive Metabolic Panel 11/05/17 Range/Units 00:02 Sodium 138 (137-145) mmol/L Potassium 3.9 (3.6-5.0) mmol/L Chloride 100.4 (98-107) mmol/L Carbon Dioxide 24 (22-30) mmol/L BUN 15 (7-17) mg/dL Creatinine 0.9 (0.7-1.2) mg/dL Glucose 253 H (65-100) mg/dL Calcium 9.8 (8.4-10.2) mg/dL - Imaging and Cardiology Stress echo: other (07/2017 normal myocardial perfusionischemia) Echo: report reviewed (07/2017 normal LV function with no significant regurgitations) EKG interpretations - Telemetry EKG Rhythm: Sinus Rhythm (normal sinus rhythm nonspecific ST-T) Assessment and Plan Atypical chest pain LA ruled out Right hip pain secondary to possible weakness no fracture Obesity Hypertension Hyperlipidemia Diabetes Recommended review of atypical chest pain LA ruled I would recent stress test echocardiogram unlikely cardiac in nature patient issues right hip pain possible from fall may be discharged from a cardiovascular point of view
[2017-11-05] MEDS: ZESTRIL PO SCH (12:30)
[2017-11-05] MEDS: MORPHINE IV PRN ×2 (17:08→22:20)
[2017-11-05] MEDS: ZOFRAN IV PRN (17:08)
[2017-11-05] MEDS ORDERED: NON-FORMULARY (Insulin Glargine,Hum.Rec.Anlog [Lantus Solostar] 30 UNIT) SQ SCH (22:00)
[2017-11-05] MEDS ORDERED: LANTUS SUB-Q SCH (22:00)
[2017-11-06] MEDS: MORPHINE IV PRN ×2 (04:10→10:59)
[2017-11-06] MEDS: ZOFRAN IV PRN (04:11)
[2017-11-06 07:21] LABS: Basophils % (Auto) 0.6 % (0.0-1.8); Eosinophils # (Auto) 0.2 K/mm3 (0.0-0.4); Eosinophils % (Auto) 2.4 % (0.0-4.3); Hematocrit 35.1 % (30.3-42.9); Hemoglobin 11.9 gm/dl (10.1-14.3); Lymphocytes # (Auto) 2.9 K/mm3 (1.2-5.4); Lymphocytes % (Auto) 45.3 % (13.4-35.0); Mean Corpuscular HGB Conc 34 % (30-34); Mean Corpuscular Hemoglobin 30 pg (28-32); Mean Corpuscular Volume 88 fl (79-97); Monocytes # (Auto) 0.5 K/mm3 (0.0-0.8); Monocytes % (Auto) 8.4 % (0.0-7.3); Platelet Count 245 K/mm3 (140-440); Red Blood Count 3.99 M/mm3 (3.65-5.03); Red Cell Distribution Width 13.8 % (13.2-15.2)
[2017-11-06 07:41] LABS: BUN/Creatinine Ratio 17; Blood Urea Nitrogen 15 mg/dL (7-17); Calcium 9.4 mg/dL (8.4-10.2); Hemolysis Index 4
[2017-11-06] MEDS: HumaLOG SUB-Q SCH ×2 (08:27→12:22)
[2017-11-06] MEDS: SODIUM CHLORIDE FLUSH SYRINGE 10 ML IV SCH (10:57)
[2017-11-06] MEDS: LOVENOX SUB-Q SCH (10:57)
[2017-11-06] MEDS: ASPIRIN PO SCH (10:57)
[2017-11-06 10:58] VITALS: BP 132/85
[2017-11-06] MEDS: ZESTRIL PO SCH (10:59)
[2017-11-06] MEDS: TENORMIN PO SCH (10:59)
--- NOTE | 2017-11-06 13:00 | Discharge Summary ---
Providers - Providers Date of Admission: 11/05/17 06:20 Date of discharge: 11/06/17 Attending physician: DEYANIRA DAVILA 11/05/17 06:20 Consult to Physician [CONS] Routine Comment: Consulting Provider: MICHAEL DONOVAN Physician Instructions: Reason For Exam: cp Primary care physician: ASAD QUIROZ Hospitalization Condition: Stable Hospital course: She presented with atypical chest pain. Patient had a fall but this was secondary to weakness of her leg. Patient has CT scan of the leg with no abnormality. We'll need physical therapy upon discharge. Typical chest pain recent echo recent stress test negative negative cardiac isoenzymes. Disposition: DC-01 TO HOME OR SELFCARE Core Measure Documentation - Palliative Care Palliative Care/ Comfort Measures: Not Applicable - Core Measures Any of the following diagnoses?: none Exam - Constitutional Vitals: Temp Pulse Resp BP Pulse Ox 98.6 F 96 H 20 132/85 96 11/06/17 09:08 11/06/17 10:59 11/06/17 11:29 11/06/17 10:59 11/06/17 09:26 General appearance: Present: no acute distress, well-nourished - EENT Eyes: Present: PERRL ENT: hearing intact, clear oral mucosa - Neck Neck: Present: supple, normal ROM - Respiratory Respiratory effort: normal Respiratory: bilateral: CTA - Cardiovascular Heart Sounds: Present: S1 & S2. Absent: rub, click - Extremities Extremities: pulses symmetrical, No edema Peripheral Pulses: within normal limits - Abdominal General gastrointestinal: Present: soft, non-tender, non-distended, normal bowel sounds Female genitourinary: Present: normal - Integumentary Integumentary: Present: clear, warm, dry - Musculoskeletal Musculoskeletal: strength equal bilaterally, other (still has some lower extremity weakness and discomfort. Can benefit from home physical therapy. Physical therapy outpatient.) - Psychiatric Psychiatric: appropriate mood/affect, intact judgment & insight - Neurologic Neurologic: CNII-XII intact, moves all extremities Plan Weight Bearing Status: Partial Weight Bearing Diet: low cholesterol, low salt Follow up with: PRIMARY CARE, [Referring] - 3-5 Days Prescriptions: Aspirin [Aspirin TAB] 325 mg PO QDAY #30 tablet Atenolol [Tenormin] 50 mg PO DAILY #30 tablet Insulin Glargine,Hum.rec.anlog [Lantus Solostar] 30 unit SQ QHS #1 insuln.pen Ondansetron [Zofran ORAL LIQ] 4 mg PO TID PRN #15 oralsyr PRN Reason: Nausea And Vomiting Potassium Chloride [K-Dur] 40 meq PO QDAY #2 tablet Promethazine [Phenergan SUPPOS] 25 mg [place] Q6H PRN #60 supp.rect PRN Reason: N/V If Npo And No Iv Access
== END 2017-11-06 16:08 | disposition home or self-care (01) ==
LOC: SUATTDRO 11-05 00:10 → ED 11-05 00:10 → 4A 11-05 06:20 → INTOOBSV 11-05 06:20
PROVIDERS: ADMIT Internal Medicine; ATTEND Internal Medicine
DX: R07.89 Other chest pain (principal); R10.9 Unspecified abdominal pain; I10 Essential (primary) hypertension; M25.551 Pain in right hip; E11.9 Type 2 diabetes mellitus without complications; E78.5 Hyperlipidemia, unspecified; M19.90 Unspecified osteoarthritis, unspecified site; Z86.73 Personal history of transient ischemic attack (TIA), and cerebral infarction without residual deficits; Z79.4 Long term (current) use of insulin; Z79.82 Long term (current) use of aspirin; Z79.899 Other long term (current) drug therapy; E66.9 Obesity, unspecified; Z68.30 Body mass index [BMI] 30.0-30.9, adult; Z82.49 Family history of ischemic heart disease and other diseases of the circulatory system
CPT/HCPCS: 36415; 73502; 73700; 74176; 80048; 81001; 82962; 84484; 85025; 85379; 93005; 93010; 96372; 96374; 96375; 96376; 99285; G0378; J1650; J2270; J2405; J1815

== ENCOUNTER 2019-08-10 15:27 | Outpatient (CLI) | payer MEDICARE ==
--- NOTE | 2019-08-10 17:22 | Vascular Lab Report ---
DUPLEX DOPPLER LOWER EXTREMITY VEINS, RIGHT INDICATION: RLE SWELLING. TECHNIQUE: Duplex doppler imaging was performed through the veins of the right lower extremity using venous comp ression and other maneuvers. COMPARISON: None available. FINDINGS: Common femoral vein: Negative. Superficial femoral vein: Negative. Popliteal vein: Negative. Calf veins: Negative. Additional findings: There is localized soft tissue edema/fluid anterior to the right knee. IMPRESSION: No sonographic evidence for DVT in the right lower extremity. Signer Name: Harinder Ascencio MD Signed: 08/10/2019 5:17 PM Workstation Name: [id number]
== END 2019-08-10 15:28 | disposition home or self-care (01) ==
LOC: VAS 15:27
PROVIDERS: ATTEND Internal Medicine Hematology & Oncology
DX: R22.41 Localized swelling, mass and lump, right lower limb (principal)

== ENCOUNTER 2020-08-18 05:14 | Emergency (ER) | payer MEDICARE ==
[2020-08-18 05:24] VITALS: BP 159/78
--- NOTE | 2020-08-18 06:16 | Cat Scan Report ---
CT HEAD WITHOUT CONTRAST INDICATION / CLINICAL INFORMATION: Head injury. TECHNIQUE: All CT scans at this location are performed using CT dose reduction for ALARA by means of automated exposure control. COMPARISON: None available. FINDINGS: HEMORRHAGE: None. EXTRA-AXIAL SPACES: Mildly prominent likely related to cortical atrophy. VENTRICULAR SYSTEM: Normal in size and morphology for the patient's age. CEREBRAL PARENCHYMA: There are moderate small vessel ischemic changes in the periventricular white ma tter bilaterally.. No acute territorial infarct. MIDLINE SHIFT / HERNIATION: None. CEREBELLUM / BRAINSTEM: No significant abnormality. ORBITS: Normal as visualized. SOFT TISSUES: No significant abnormality. SKULL: No significant abnormality. PARANASAL SINUSES / MASTOID AIR CELLS: Normal as visualized. ADDITIONAL FINDINGS: None. IMPRESSION: No acute intracranial abnormality. Signer Name: Harinder Ascencio MD Signed: 08/18/2020 6:11 AM Workstation Name: [id number]
--- NOTE | 2020-08-18 06:22 | Cat Scan Report ---
CT CERVICAL SPINE WO CON INDICATION / CLINICAL INFORMATION: Head injury. Neck pain. TECHNIQUE: All CT scans at this location are performed using CT dose reduction for ALARA by means of automated exposure control. COMPARISON: None available. FINDINGS: There is moderately advanced generalized spondylosis. The prevertebral soft tissues are normal. There is no evidence of acute fracture or subluxation. I see no evidence of a focal disc herniation or epi dural hematoma. The lung apices are clear. There is a 2.3 cm ovoid hyperdense nodule in the upper pole of the left lo be of the thyroid gland which contains mild macrocalcifications superiorly. There is a 6 mm rounded m acrocalcification in the midportion of the right lobe of the thyroid gland. IMPRESSION: 1. Moderately advanced spondylosis without acute osseous abnormality. 2. Incidental 2.3 cm nodule in the left lobe of the thyroid gland. Nonemergent thyroid ultrasound is recommended for further evaluation. INCIDENTAL THYROID NODULE RECOMMENDATION RECOMMENDATION: Dedicated thyroid ultrasound. Nonpalpable nodules detected on US or other anatomic imaging studies are termed incidentally discover ed nodules or incidentalomas. Nonpalpable nodules have the same risk of malignancy as palpable nodule s with the same size. Generally, only nodules >1 cm should be evaluated, since they have a greater po tential to be clinically significant cancers. (MARLENE, 2009). Follow up for incidental thyroid nodules <1 cm is not recommended. Diagnostic thyroid ultrasound is recommended only if the patient meets the following criteria: (1) < 35 years of age with normal life expectancy and nodule >= 1 cm. (2) >= 35 years of age with normal life expectancy and nodule >= 1.5 cm. ACR Ultrasound for incidental thyroid nodules: [email or web address] Signer Name: Harinder Ascencio MD Signed: 08/18/2020 6:17 AM Workstation Name: [id number]
== END 2020-08-18 07:44 ==
LOC: ED 05:14
DX: R51.9 Headache, unspecified (principal); Z53.21 Procedure and treatment not carried out due to patient leaving prior to being seen by health care provider
CPT/HCPCS: 70450; 72125

== ENCOUNTER 2020-08-18 11:03 | Emergency (ER) | payer MEDICARE ==
[2020-08-18 11:46] VITALS: BP 174/89
[2020-08-18] MEDS ORDERED: ONDANSETRON 4 MG ODT TAB PO ONE (12:21)
[2020-08-18] MEDS ORDERED: ACETAMINOPHEN 500 MG TAB PO ONE (12:21)
--- NOTE | 2020-08-18 12:21 | Emergency Department Report ---
ED Fall HPI - General Chief Complaint: Fall Stated Complaint: HEAD INJURY/FALL Time Seen by Provider: 08/18/20 12:00 Source: patient Mode of arrival: Ambulatory - History of Present Illness Initial Comments: 64-year-old -[place] female presents to the emergency room stating that she had a fall yesterday. Patient states she was walking down the steps and when her right side leg went numb she grabbed the rail to the stairs and it broke and she fell on her buttocks down the last 4 steps. Patient states that she hit her head and has a knot on the back of her head. She states that she had placed ice. She reports that she coughed and then coughed up blood. Patient states she was quantified as a washcloth full. She reports she has a history of high blood pressure and diabetes. Patient states that on Tuesday her blood sugar was low at 66. Patient did not check her blood sugar on Tuesday. Current medication is Lantus 30 units subcu. She takes amlodipine for her blood pressure. She does complain of nausea and pain and headache. MD Complaint: fall - Related Data Home Medications Medication Instructions Recorded Confirmed Last Taken Insulin Aspart (Nf) [NovoLOG 100 See Protocol SQ AC 12/23/12 08/08/16 08/07/16 UNITS/ML VIAL] Hydrocodone Bit/Acetaminophen 20 mg PO TID PRN 08/08/16 08/08/16 08/07/16 [Lortab 5-500 Tablet] Previous Rx's Medication Instructions Recorded Last Taken Type Acetaminophen [Acetaminophen TAB] 650 mg PO Q4H PRN tablet 11/06/17 Unknown Rx Aspirin 325 mg PO QDAY #30 tablet 11/06/17 Unknown Rx Insulin Glargine,Hum.rec.anlog 30 unit SQ QHS #1 insuln.pen 11/06/17 Unknown Rx [Lantus Solostar] Ondansetron [Zofran ORAL LIQ] 4 mg PO TID PRN #15 oralsyr 11/06/17 Unknown Rx Promethazine [Phenergan SUPPOS] 25 mg PA Q6H PRN #60 supp.rect 11/06/17 Unknown Rx atenoloL [Tenormin] 50 mg PO DAILY #30 tablet 11/06/17 Unknown Rx Potassium Chloride [K-Dur] 40 meq PO QDAY #2 tablet 08/18/20 Unknown Rx traMADoL [Ultram 50 MG tab] 50 mg PO Q6HR PRN #12 tablet 08/18/20 Unknown Rx Allergies Allergy/AdvReac Type Severity Reaction Status Date / Time No Known Allergies Allergy Verified 11/04/17 23:08 ED Review of Systems ROS: Stated complaint: HEAD INJURY/FALL Other details as noted in HPI Constitutional: no symptoms reported Eyes: other (Feels pressure behind her eyes) Respiratory: cough Gastrointestinal: nausea, vomiting (X1). denies: abdominal pain Genitourinary: dysuria Musculoskeletal: back pain Skin: denies: rash, lesions Neurological: headache, numbness (Right leg prior to fall) Psychiatric: denies: anxiety, depression Hematological/Lymphatic: denies: easy bleeding, easy bruising ED Past Medical Hx - Past Medical History Previous Medical History?: Yes Hx Hypertension: Yes Hx Heart Attack/AMI: No Hx Congestive Heart Failure: No Hx Diabetes: Yes Hx Deep Vein Thrombosis: No Hx Pulmonary Embolism: No Hx Liver Disease: No Hx Renal Disease: No Hx Sickle Cell Disease: No Hx Arthritis: Yes Hx Seizures: No Hx Psychiatric Treatment: No Hx Asthma: Yes Hx COPD: No Hx Tuberculosis: No Hx Dementia: No Hx HIV: No Additional medical history: Sciatica, gastroparesis. negative stress 07/2015. cardiac cath 11/14/14 showing normal coronary arteries an EF of 60-65% - Surgical History Hx Coronary Stent: No Hx Pacemaker: No Hx Internal Defibrillator: No Additional Surgical History: back surgery. bowel obstruction surgery. - Social History Smoking Status: Never Smoker Substance Use Type: None - Medications Home Medications: Home Medications Medication Instructions Recorded Confirmed Last Taken Type Insulin Aspart (Nf) [NovoLOG 100 See Protocol SQ AC 12/23/12 08/08/16 08/07/16 History UNITS/ML VIAL] Hydrocodone Bit/Acetaminophen 20 mg PO TID PRN 08/08/16 08/08/16 08/07/16 History [Lortab 5-500 Tablet] Acetaminophen [Acetaminophen TAB] 650 mg PO Q4H PRN tablet 11/06/17 Unknown Rx Aspirin 325 mg PO QDAY #30 tablet 11/06/17 Unknown Rx Insulin Glargine,Hum.rec.anlog 30 unit SQ QHS #1 insuln.pen 11/06/17 Unknown Rx [Lantus Solostar] Ondansetron [Zofran ORAL LIQ] 4 mg PO TID PRN #15 oralsyr 11/06/17 Unknown Rx Promethazine [Phenergan SUPPOS] 25 mg PA Q6H PRN #60 supp.rect 11/06/17 Unknown Rx atenoloL [Tenormin] 50 mg PO DAILY #30 tablet 11/06/17 Unknown Rx Potassium Chloride [K-Dur] 40 meq PO QDAY #2 tablet 08/18/20 Unknown Rx traMADoL [Ultram 50 MG tab] 50 mg PO Q6HR PRN #12 tablet 08/18/20 Unknown Rx ED Physical Exam - General Limitations: No Limitations General appearance: alert, in no apparent distress - Head Head exam: Present: other (Hematoma occipital tenderness). Absent: atraumatic - Eye Eye exam: Present: normal appearance, PERRL - ENT ENT exam: Present: normal exam, mucous membranes moist, other (Top and bottom dentures) - Neck Neck exam: Present: normal inspection, full ROM - Respiratory Respiratory exam: Present: chest wall tenderness (Left side chest) - Cardiovascular Cardiovascular Exam: Present: regular rate, normal rhythm - GI/Abdominal GI/Abdominal exam: Present: soft, normal bowel sounds - Extremities Exam Extremities exam: Present: full ROM - Back Exam Back exam: Present: tenderness, other (Lumbar surgical scar) - Neurological Exam Neurological exam: Present: alert, oriented X3, CN II-XII intact, abnormal gait - Psychiatric Psychiatric exam: Present: normal affect, normal mood - Skin Skin exam: Present: warm, dry, intact, normal color. Absent: rash ED Course Vital Signs 08/18/20 11:41 Temperature 98.2 F Pulse Rate 89 Respiratory 18 Rate Blood Pressure 174/89 O2 Sat by Pulse 100 Oximetry ED Medical Decision Making - Lab Data Result diagrams: 08/18/20 12:35 08/18/20 12:35 - Radiology Data Radiology results: report reviewed [facility] [address] [place] [address] Cat Scan Report Signed Patient: LOREN TIM MR#: [id number] : 1955 Acct:[id number] Age/Sex: 64 / F ADM Date: 08/18/20 Loc: ED Attending Dr: Ordering Physician: CELINA GRANADOS Date of Service: 08/18/20 Procedure(s): CT head/brain wo con Accession Number(s): [id number] cc: [employer] CT HEAD WITHOUT CONTRAST INDICATION / CLINICAL INFORMATION: Head injury. TECHNIQUE: All CT scans at this location are performed using CT dose reduction for ALARA by means of automated exposure control. COMPARISON: None available. FINDINGS: HEMORRHAGE: None. EXTRA-AXIAL SPACES: Mildly prominent likely related to cortical atrophy. VENTRICULAR SYSTEM: Normal in size and morphology for the patient's age. CEREBRAL PARENCHYMA: There are moderate small vessel ischemic changes in the periventricular white matter bilaterally.. No acute territorial infarct. MIDLINE SHIFT / HERNIATION: None. CEREBELLUM / BRAINSTEM: No significant abnormality. ORBITS: Normal as visualized. SOFT TISSUES: No significant abnormality. SKULL: No significant abnormality. PARANASAL SINUSES / MASTOID AIR CELLS: Normal as visualized. ADDITIONAL FINDINGS: None. IMPRESSION: No acute intracranial abnormality. Signer Name: Harinder Ascencio MD Signed: 08/18/2020 6:11 AM Workstation Name: [id number] Transcribed By: RT Dictated By: Harinder Ascencio MD Electronically Authenticated By: Harinder Ascencio MD Signed Date/Time: 08/18/20610 DD/ 8 TD/TT: [facility] [address] [place] [address] Cat Scan Report Signed Patient: LOREN TIM MR#: [id number] : 1955 Acct:[id number] Age/Sex: 64 / F ADM Date: 08/18/20 Loc: ED Attending Dr: Ordering Physician: CELINA GRANADOS Date of Service: 08/18/20 Procedure(s): CT cervical spine wo con Accession Number(s): [id number] cc: CELINA [facility] CT CERVICAL SPINE WO CON INDICATION / CLINICAL INFORMATION: Head injury. Neck pain. TECHNIQUE: All CT scans at this location are performed using CT dose reduction for ALARA by means of automated exposure control. COMPARISON: None available. FINDINGS: There is moderately advanced generalized spondylosis. The prevertebral soft tissues are normal. There is no evidence of acute fracture or subluxation. I see no evidence of a focal disc herniation or epidural hematoma. The lung apices are clear. There is a 2.3 cm ovoid hyperdense nodule in the upper pole of the left lobe of the thyroid gland which contains mild macrocalcifications superiorly. There is a 6 mm roun ded macrocalcification in the midportion of the right lobe of the thyroid gland. IMPRESSION: 1. Moderately advanced spondylosis without acute osseous abnormality. 2. Incidental 2.3 cm nodule in the left lobe of the thyroid gland. Nonemergent thyroid ultrasound is recommended for further evaluation. INCIDENTAL THYROID NODULE RECOMMENDATION RECOMMENDATION: Dedicated thyroid ultrasound. Nonpalpable nodules detected on US or other anatomic imaging studies are termed incidentally discovered nodules or incidentalomas. Nonpalpable nodules have the same risk of malignancy as palpable nodules with the same size. Generally, only nodules >1 cm should be evaluated, since they have a greater potential to be clinically significant cancers. (MARLENE, 2009). Follow up for incidental thyroid nodules <1 cm is not recommended. Diagnostic thyroid ultrasound is recommended only if the patient meets the following criteria: (1) < 35 years of age with normal life expectancy and nodule >= 1 cm. (2) >= 35 years of age with normal life expectancy and nodule >= 1.5 cm. ACR Ultrasound for incidental thyroid nodules: [email or web address] Signer Name: Harinder Ascencio MD Signed: 08/18/2020 6:17 AM Workstation Name: [id number] Transcribed By: RT Dictated By: Harinder Ascencio MD Electronically Authenticated By: Harinder Ascencio MD Signed Date/Time: 08/18/20616 DD/ 1 TD/TT: - Medical Decision Making 64-year-old -[place] female presents to the emergency room stating that she had a fall yesterday. Patient states she was walking down the steps and when her right side leg went numb she grabbed the rail to the stairs and it broke and she fell on her buttocks down the last 4 steps. Patient states that she hit her head and has a knot on the back of her head. She states that she lopez d placed ice. She reports that she coughed and then coughed up blood. Patient states she was quantified as a washcloth full. She reports she has a history of high blood pressure and diabetes. Patient states that on Tuesday her blood sugar was low at 66. Patient did not check her blood sugar on Tuesday. Current medication is Lantus 30 units subcu. She takes amlodipine for her blood pressure. She does complain of nausea and pain and headache. CT of head is negative was done early. CT of neck shows spondylosis, 2.3 cm thyroid nodule. I ordered rib x-ray left side with chest x-ray. Order basic labs CBC CMP and urinalysis as patient complained of dysuria. Tylenol 1 g and Zofran 4 mg have been ordered. X-ray of left ribs side and chest x-ray are negative for any acute fractures or abnormalities. Discussed with patient that she needs to follow-up with her primary care provider to discuss abnormal CT of neck. Discussed with him that we here in the emergency room found a 2.3 cm thyroid nodule that needs to be followed up. Critical care attestation.: If time is entered above; I have spent that time in minutes in the direct care of this critically ill patient, excluding procedure time. ED Disposition Clinical Impression: Fall, Head injury, acute, Rib pain on left side, Chest wall tenderness, Thyroid nodule greater than or equal to 1.5 cm in diameter incidentally noted on imaging study Disposition: DC-01 TO HOME OR SELFCARE Is pt being admited?: No Does the pt Need Aspirin: No Condition: Stable Instructions: Nonspecific Chest Pain, Adult, Thyroid Nodule, Chest Wall Pain, E asy-to-Read Additional Instructions: Discussed with patient that she needs to follow-up with her primary care provider to discuss abnormal CT of neck. Discussed with him that we here in the emergency room found a 2.3 cm thyroid nodule that needs to be followed up. Other x-rays and studies are negative for any acute findings. Please take pain medication as needed. Please take potassium as your potassium is low. Be sure to stay away from sugary sodas as you are blood sugar was 266 after drinking orange soda. Please take your insulin as prescribed by your primary care provider. Please increase your water intake. Prescriptions: Potassium Chloride [K-Dur] 40 meq PO QDAY #2 tablet traMADoL [Ultram 50 MG tab] 50 mg PO Q6HR PRN #12 tablet PRN Reason: Pain Referrals: ASAD NAQVI [Other] - 3-5 Days ASAD QUIROZ DO [Staff Physician] - 3-5 Days
[2020-08-18 12:57] LABS: Hematocrit 36.7 % (30.3-42.9); Hemoglobin 12.6 gm/dl (10.1-14.3); Mean Corpuscular HGB Conc 34 % (30-34); Mean Corpuscular Volume 87 fl (79-97); Platelet Count 234 K/mm3 (140-440); Red Blood Count 4.21 M/mm3 (3.65-5.03); Red Cell Distribution Width 13.4 % (13.2-15.2)
[2020-08-18 12:59] LABS: Bilirubin,Urine NEG (Negative); Blood,Urine NEG (Negative); Color,Urine Yellow (Yellow); Mucus,Urine FEW /HPF; Protein,Urine <15 mg/dL mg/dL (Negative)
[2020-08-18 13:22] LABS: Alanine Aminotransferase 18 units/L (7-56); Albumin 3.9 g/dL (3.9-5); BUN/Creatinine Ratio 8; Blood Urea Nitrogen 7 mg/dL (7-17); Calcium 9.1 mg/dL (8.4-10.2); Hemolysis Index 6
[2020-08-18 13:42] LABS: Total Cells Counted 100
[2020-08-18 13:45] LABS: Giant Platelets Rare; Large Platelets Few; Platelet Estimate Consistent w Auto; RBC Morphology Normal
--- NOTE | 2020-08-18 13:45 | XRay Report ---
XR ribs UNI w PA chest 3+V LT INDICATION / CLINICAL INFORMATION: Fall with left rib pain posterior COMPARISON: None available. FINDINGS: SUPPORT DEVICES: None. HEART / MEDIASTINUM: No significant abnormality. LUNGS / PLEURA: Lungs are clear. Costophrenic sulci are sharp. No pneumothorax. RIBS: No acute rib fracture identified. IMPRESSION: 1. No acute rib fracture. Signer Name: Joe Pinto MD Signed: 08/18/2020 1:41 PM Workstation Name: [id number]
== END 2020-08-18 14:15 | disposition home or self-care (01) ==
LOC: ED 11:03
DX: S09.90XA Unspecified injury of head, initial encounter (principal); R07.81 Pleurodynia; R07.89 Other chest pain; E04.1 Nontoxic single thyroid nodule; I10 Essential (primary) hypertension; E11.9 Type 2 diabetes mellitus without complications; J45.909 Unspecified asthma, uncomplicated; Z98.890 Other specified postprocedural states; Z79.4 Long term (current) use of insulin; Z79.899 Other long term (current) drug therapy; W19.XXXA Unspecified fall, initial encounter; Y93.89 Activity, other specified; Y92.89 Other specified places as the place of occurrence of the external cause; Y99.8 Other external cause status
CPT/HCPCS: 36415; 70450; 72125; 80053; 81001; 85007; 85025; Q0162

== ENCOUNTER 2021-02-13 09:40 | Outpatient (CLI) | payer MEDICARE ==
--- NOTE | 2021-02-13 13:22 | Magnetic Resonance Report ---
MR lumbar spine wo con INDICATION / CLINICAL INFORMATION: 65 years Female; DORSALGIA,UNSPECIFIED, LOWER BACK PAIN. TECHNIQUE: Multisequence, multiplanar images of the lumbar spine were obtained. COMPARISON: None available. FINDINGS: ALIGNMENT: There is notable straightening of the lumbar spine with loss of usual lordosis. However, t here is no significant spondylolisthesis. VERTEBRAE:There is decompression and fusion at L4-5 and L5-S1 with posterior instrumentation. Additio carlos a, there is anterior fusion at L5-S1 with intervertebral bone graft. There is marked disc space narrowing from L1-to L3-L4 with prominent degenerative endplate changes. A dditionally, there are Modic type III changes at L1-2. There is mild endplate edema at L2-3. VISUALIZED SPINAL CORD: The distal spinal cord appears to demonstrate appropriate signal intensity an d terminates at L1-2. The left facet joint hypertrophy at T12-L1 minimally flattens the left lateral cord with encroachment on the left lateral recess. Additionally, there is mild to moderate left awais inal narrowing. NOLLM-GO-PMRZE ANALYSIS: L1-2: The spondylosis and facet joint hypertrophy result in mild to moderate spinal stenosis with mil d encroachment on the cauda equina. There is similar degree of neural from narrowing bilaterally. L2-3: The spondylosis and facet joint hypertrophy result in marked spinal stenosis. The left neural f oraminal narrowing mildly encroaches on the exiting left L2 nerve root sheath. Moderate narrowing is seen on the right. L3-4: There is mild to moderate spinal stenosis at the junctional L3-4 level with encroachment on the lateral recesses. Additionally, the neural foraminal narrowing encroaches on the exiting L3 nerve ro ot sheaths, greater on the right. L4-5: There is decompression and fusion without significant recurrent Central stenosis. L5-S1: No significant abnormality. PARASPINAL SOFT TISSUES: No significant abnormality. ADDITIONAL FINDINGS: No epidural collections are identified. IMPRESSION: 1. There is decompression and fusion at L4-5 and L5-S1. 2. There is marked spinal stenosis at L2-3. The left foraminal narrowing mildly encroaches on the exi ting left L2 nerve root sheath. 3 at. There is mild to moderate spinal stenosis at L1-2 and L3-4. Additionally, there is notable fora jorge narrowing at the junctional L3-4 level with encroachment on the exiting L3 nerve root sheaths, greater on the right. Signer Name: Rinku Grubbs MD Signed: 02/13/2021 1:17 PM Workstation Name: [id number]
== END 2021-02-13 09:41 | disposition home or self-care (01) ==
LOC: MRI 09:40
PROVIDERS: ATTEND Internal Medicine Hematology & Oncology
DX: M48.061 Spinal stenosis, lumbar region without neurogenic claudication (principal); M43.27 Fusion of spine, lumbosacral region
CPT/HCPCS: 72148